=== PATIENT | male | born 1935 | race Caucasian/White ===

== ENCOUNTER → 2016-09-01 | Outpatient (CLI) | payer MEDICARE, OTHER, BC ==
[~2016-09-01] MED LIST: CO Q100C9; CYMB30CA PO; CYMB60CA PO; DIOV320T6 PO; LIVA1TAB PO; METF500T PO; MULT1TAB84 PO; MULTTAB67 PO; NEBI20 PO; OMEG1CAP53 PO; OXYC-404 PO; PENT400T PO; TAMS5CAP PO; VIAG100T PO; VITA500T PO; VITA500T83 PO; WARF-22 PO; WARF-23 PO
== END ==
LOC: PHPRE 12:45
PROVIDERS: ATTEND Pain Medicine Interventional Pain Medicine
DX: Z01.812 Encounter for preprocedural laboratory examination (principal)

== ENCOUNTER → 2016-09-04 | Outpatient (CLI) | payer MEDICARE, OTHER, BC ==
[~2016-09-04] MED LIST changes: -OXYC-404 PO
[2016-09-04 10:35] LABS: INTERNATIONAL NORMALIZED RATIO 1.8 RATIO; PROTHROMBIN TIME - PATIENT 20.6 SEC (9.8-11.6)
[2016-09-04 10:41] LABS: AUTOMATED NEUTROPHIL # 4.1 TH/MM3 (1.8-7.7); BASOPHIL % 0.1 % (0.0-2.0); EOSINOPHIL # 0.2 TH/MM3 (0-0.4); EOSINOPHIL % 2.7 % (0.0-4.0); HEMATOCRIT 40.8 % (39.0-51.0); HEMO FLAGS DIFF FINAL; LYMPH % 23.5 % (9.0-44.0); LYMPHOCYTE # 1.5 TH/MM3 (1.0-4.8); MEAN CELL VOLUME 89.1 FL (80.0-100.0); MEAN CORPUSCULAR HEMOGLOBIN 30.4 PG (27.0-34.0); MEAN CORPUSCULAR HGB CONC 34.2 % (32.0-36.0); MONO % 10.7 % (0.0-8.0); PLATELET COUNT 212 TH/MM3 (150-450); RED BLOOD COUNT 4.57 MIL/MM3 (4.50-5.90); RED CELL DISTRIBUTION WIDTH 14.1 % (11.6-17.2); WHITE BLOOD COUNT 6.5 TH/MM3 (4.0-11.0)
== END ==
LOC: PHPRE 09:41
PROVIDERS: ATTEND Pain Medicine Interventional Pain Medicine
DX: M54.5 Low back pain (principal); Z01.812 Encounter for preprocedural laboratory examination
CPT/HCPCS: 36415; 84132; 85025; 85610

== ENCOUNTER 2016-09-10 08:42 | Emergency (ER) | payer MEDICARE, OTHER, BC ==
[~2016-09-10] VITALS: Ht 180.3 cm; Wt 95.7 kg
[~2016-09-10 08:42] MED LIST changes: -MULTTAB67 PO; -VITA500T83 PO
[2016-09-10 08:56] VITALS: PULSE 79; RESP 24; TEMP 97.6; O2SAT 99
[2016-09-10] MEDS ORDERED: ONDANSETRON HCL 4 MG/2 ML VIAL ONE (09:02)
[2016-09-10] MEDS ORDERED: MORPHINE SULFATE 8 MG/ML INJ IV PUSH ONE (09:15)
[2016-09-10] MEDS ORDERED: SODIUM CHLOR 0.9% 1000 ML INJ 1,000 ML IV SCH (09:15)
[2016-09-10] MEDS ORDERED: ONDANSETRON HCL 4 MG/2 ML VIAL IV PUSH ONE (09:15)
[2016-09-10] MEDS ORDERED: MULTTAB67 PO (09:28)
[2016-09-10] MEDS ORDERED: VITA500T83 PO (09:28)
[2016-09-10 09:31] VITALS: BP 202/91; PULSE 88; RESP 20; O2SAT 99
[2016-09-10 09:33] LABS: HEMATOCRIT 42.3 % (39.0-51.0); MEAN CELL VOLUME 87.8 FL (80.0-100.0); MEAN CORPUSCULAR HEMOGLOBIN 29.8 PG (27.0-34.0); PLATELET COUNT 245 TH/MM3 (150-450); RED BLOOD COUNT 4.81 MIL/MM3 (4.50-5.90); RED CELL DISTRIBUTION WIDTH 13.7 % (11.6-17.2); WHITE BLOOD COUNT 18.3 TH/MM3 (4.0-11.0)
[2016-09-10 09:36] LABS: BLOOD, URINE LARGE (NEG); GLUCOSE,URINE NEG (NEG); KETONE, URINE NEG (NEG); NITRITE,URINE NEG (NEG); PH, URINE 5.5 (5.0-8.5)
[2016-09-10 09:40] LABS: HEMO FLAGS AUTO DIFF
[2016-09-10 09:45] LABS: BLOOD UREA NITROGEN 31 MG/DL (7-18); GLOMERULAR FILTRATION RATE 49 ML/MIN (>89)
[2016-09-10 09:46] LABS: CHLORIDE 99 MEQ/L (98-107); POTASSIUM 3.9 MEQ/L (3.5-5.1); SODIUM (NA) 138 MEQ/L (136-145)
[2016-09-10 09:51] LABS: URINE COLOR YELLOW (YELLW/STRAW)
[2016-09-10 09:52] LABS: SQUAMOUS EPITHELIAL CELL URINE 0-5 /hpf (0-5)
[2016-09-10 09:53] LABS: COMMENT (UR) CULT NOT INDICATED; CULTURE IF INDICATED CULT NOT INDICATED
[2016-09-10 10:03] LABS: ANION GAP 13 MEQ/L (5-15); BICARBONATE 26.3 MEQ/L (21.0-32.0); MAGNESIUM 2.1 MG/DL (1.5-2.5)
[2016-09-10 10:04] LABS: ALT (GPT) 18 U/L (12-78); AST (GOT) 18 U/L (15-37)
[2016-09-10 10:06] LABS: BANDS 1 % (0-6); NEUTROPHIL # MANUAL DIFF 16.1 TH/MM3 (1.8-7.7); POLYS (SEG NEUTROPHILS) 87 % (16-70); TOTAL BILIRUBIN ADULT 1.4 MG/DL (0.2-1.0); WBC DIFF SAMPLE 100
[2016-09-10 10:07] LABS: PLATELET ESTIMATE SMEAR NORMAL (NORMAL); PLATELET MORPHOLOGY NORMAL (NORMAL); SCAN/DIFF FINAL DIFF MANUAL
[2016-09-10 10:08] VITALS: BP 172/91; PULSE 78; RESP 18; O2SAT 94
[2016-09-10 10:08] LABS: ALKALINE PHOSPHATASE 91 U/L (45-117)
[2016-09-10 10:28] LABS: APTT (PATIENT) 32.7 SEC (24.3-30.1)
--- NOTE | 2016-09-10 10:28 | PD ---
HPI Chief Complaint: GI Complaint Time Seen by Provider: 09:03 Travel History International Travel<30 days: No Contact w/Intl Traveler<30days: No Traveled to known affect area: No History of Present Illness HPI This 80-year-old male presented with complaint of pain everywhere. He has a history 3 back surgeries. On Thursday he had a pain pump inserted here under Dr. Enrique. His says that since he had the surgery he has been having trouble urinating and just urinating small amounts he has had an indwelling catheter in the past and has a history of prostate problems. This morning he was vomiting and complaining of pain everywhere. PFSH Past Medical History Arthritis: Yes Atrial Fibrillation: Yes Anxiety: No Depression: No Heart Rhythm Problems: Yes (A FIB) Cancer: Yes (SKIN CANCER) Cardiovascular Problems: Yes (ATRIAL FIB.; LOOP PUMP) High Cholesterol: Yes Chest Pain: No Congestive Heart Failure: No Cerebrovascular Accident: No Diabetes: Yes Patient Takes Glucophage: Yes Diminished Hearing: No Endocrine: No Genitourinary: Yes (FREQUENCY) Hepatitis: No Hiatal Hernia: No Hypertension: Yes Immune Disorder: No Kidney Stones: Yes Musculoskeletal: Yes (ARTHRITIS) Neurologic: Yes (NEUROPATHY) Psychiatric: Yes (CLAUSTRAPHOBIA (WITH MRI)) Reproductive: No Respiratory: No Migraines: No Seizures: No Thyroid Disease: No Tetanus Vaccination: > 5 Years Influenza Vaccination: Yes Past Surgical History Abdominal Surgery: No AICD: No Body Medical Devices: LOOP MONITOR Cardiac Surgery: No Ear Surgery: No Endocrine Surgery: No Eye Surgery: Yes (BILAT CATARACT SURGERY) Genitourinary Surgery: Yes (LITHROTRIPSY) Joint Replacement: No Oral Surgery: No Pacemaker: No Thoracic Surgery: No Other Surgery: Yes (MS PAIN PUMP) Social History Alcohol Use: No Tobacco Use: No Substance Use: No Allergies-Medications (Allergen,Severity, Reaction): Coded Allergies: Neurontin (Unverified Adverse Reaction, Severe, CONFUSION, HALLUCINATIONS , 09/10/16) Reported Meds & Prescriptions Reported Meds & Active Scripts Active Reported Vitamin C ER (Ascorbic Acid) 500 Mg Shabbir 500 Mg PO DAILY Multiple Vitamin 1 Tab 1 Tab PO DAILY Metformin (Metformin HCl) 500 Mg Tab 500 Mg PO BIDPC With meals Pentoxifylline ER (Pentoxifylline) 400 Mg Tab 400 Mg PO TID Livalo (Pitavastatin) 1 Mg Tab 1 Mg PO DAILY Diovan Hct (Valsartan-Hydrochlorothiazide) 320-25 Mg Tab 1 Tab PO DAILY Warfarin 10 Mg Tab 10 Mg PO ,THU,THU,THU Warfarin 5 Mg Tab 5 Mg PO SUN, MON,THURS Lovaza (Kfhyo-9-Xelo Ethyl Esters) 1 Gm Cap 1,200 Mg PO DAILY Bystolic (Nebivolol) 20 Mg Tab 20 Mg PO BID Cymbalta DR (Duloxetine HCl) 30 Mg Capdr 30 Mg PO DAILY Cymbalta DR (Duloxetine HCl) 60 Mg Capdr 60 Mg PO HS Co Q 10 (Coenzyme Q10 (Ubidecarenone)) 100 Mg Cap Viagra (Sildenafil Citrate) 100 Mg Tab 100 Mg PO DAILY PRN Flomax (Tamsulosin HCl) 0.4 Mg Cap 0.4 Mg PO HS Review of Systems General / Constitutional: No: Fever, Chills Eyes: No: Diploplia, Blurred Vision HENT: No: Headaches, Vertigo Cardiovascular: No: Chest Pain or Discomfort, Palpitations Respiratory: No: Cough Gastrointestinal: Positive: Nausea, Vomiting, Abdominal Pain Genitourinary: Positive: Decreased Urinary Output Skin: No Rash, No Itching Neurologic: No: Weakness, Dizziness Hematologic/Lymphatic: No: Easy Bruising Physical Exam Narrative GENERAL: Well-developed male. He arrives in marked distress and is extremely restless SKIN: Focused skin assessment warm/dry. HEAD: Atraumatic. Normocephalic. EYES: Pupils equal and round. No scleral icterus. No injection or drainage. ENT: No nasal bleeding or discharge. Mucous membranes pink and moist. NECK: Trachea midline. No JVD. CARDIOVASCULAR: Regular rate and rhythm. No murmur appreciated. RESPIRATORY: No accessory muscle use. Clear to auscultation. Breath sounds equal bilaterally. GASTROINTESTINAL: Abdomen soft, initially it is diffusely tender, nondistended. Hepatic and splenic margins not palpable. There is a bandage on the left midabdomen. On removing the bandage there is a surgical incision with no evidence of infection MUSCULOSKELETAL: No obvious deformities. No clubbing. No cyanosis. No edema. NEUROLOGICAL: Awake and alert. No obvious cranial nerve deficits. Motor grossly within normal limits. Normal speech. PSYCHIATRIC: Appropriate mood and affect; insight and judgment normal. Data Data Last Documented VS Vital Signs Date Time Temp Pulse Resp B/P Pulse Ox O2 Delivery O2 Flow Rate FiO2 09/10/16 10:08 78 18 172/91 94 Room Air 09/10/16 08:56 97.6 Orders Ondansetron Inj (Zofran Inj) (09/10/16 09:02) Complete Blood Count With Diff (09/10/16 09:03) Comprehensive Metabolic Panel (09/10/16 09:03) Prothrombin Time / Inr (Pt) (09/10/16 09:03) Act Partial Throm Time (Ptt) (09/10/16 09:03) Magnesium (Mg) (09/10/16 09:03) Urinary Catheter Insert/Apply (09/10/16 09:03) Sodium Chlor 0.9% 1000 Ml Inj (Ns 1000 M (09/10/16 09:15) Ondansetron Inj (Zofran Inj) (09/10/16 09:15) Morphine Inj (Morphine Inj) (09/10/16 09:15) Urinalysis - C+S If Indicated (09/10/16 09:23) Ct Abd/Pel W Iv Contrast(Rout) (09/10/16 10:06) Iohexol 350 Inj (Omnipaque 350 Inj) (09/10/16 10:54) Labs Laboratory Tests Test 09/10/16 09:15 White Blood Count 18.3 TH/MM3 Red Blood Count 4.81 MIL/MM3 Hemoglobin 14.4 GM/DL Hematocrit 42.3 % Mean Corpuscular Volume 87.8 FL Mean Corpuscular Hemoglobin 29.8 PG Mean Corpuscular Hemoglobin 34.0 % Concent Red Cell Distribution Width 13.7 % Platelet Count 245 TH/MM3 Mean Platelet Volume 8.9 FL Neutrophils (%) (Auto) % Lymphocytes (%) (Auto) % Monocytes (%) (Auto) % Eosinophils (%) (Auto) % Basophils (%) (Auto) % Neutrophils # (Auto) TH/MM3 Lymphocytes # (Auto) TH/MM3 Monocytes # (Auto) TH/MM3 Eosinophils # (Auto) TH/MM3 Basophils # (Auto) TH/MM3 CBC Comment AUTO DIFF Differential Total Cells 100 Counted Neutrophils % (Manual) 87 % Band Neutrophils % 1 % Lymphocytes % 6 % Monocytes % 6 % Neutrophils # (Manual) 16.1 TH/MM3 Differential Comment FINAL DIFF MANUAL Platelet Estimate NORMAL Platelet Morphology Comment NORMAL Red Cell Morphology Comment NORMAL Prothrombin Time 11.0 SEC Prothromb Time International 1.0 RATIO Ratio Activated Partial 32.7 SEC Thromboplast Time Urine Color YELLOW Urine Turbidity CLEAR Urine pH 5.5 Urine Specific [place] 1.012 Urine Protein NEG mg/dL Urine Glucose (UA) NEG mg/dL Urine Ketones NEG mg/dL Urine Occult Blood LARGE Urine Nitrite NEG Urine Bilirubin NEG Urine Leukocyte Esterase NEG Urine RBC 4-9 /hpf Urine Squamous Epithelial 0-5 /hpf Cells Microscopic Urinalysis Comment CULT NOT INDICATED Sodium Level 138 MEQ/L Potassium Level 3.9 MEQ/L Chloride Level 99 MEQ/L Carbon Dioxide Level 26.3 MEQ/L Anion Gap 13 MEQ/L Blood Urea Nitrogen 31 MG/DL Creatinine 1.40 MG/DL Estimat Glomerular Filtration 49 ML/MIN Rate Random Glucose 199 MG/DL Calcium Level 9.7 MG/DL Magnesium Level 2.1 MG/DL Total Bilirubin 1.4 MG/DL Aspartate Amino Transf 18 U/L (AST/SGOT) Alanine Aminotransferase 18 U/L (ALT/SGPT) Alkaline Phosphatase 91 U/L Total Protein 7.8 GM/DL Albumin 3.7 GM/DL [facility] Medical Decision Making Medical Screen Exam Complete: Yes Emergency Medical Condition: Yes Medical Record Reviewed: Yes Differential Diagnosis Differential includes urinary retention, UTI, Narrative Course Sosa catheter was inserted with over a liter of urine obtained. The patient's agitation has resolved considerably. He reports much less pain. The CT of the abdomen and pelvis was obtained and shows postoperative changes. CBC does show an enlarged prostate and there is a single enlarged node for which follow-up is recommended in 6 months. It appears the patient's pain was due to his urinary retention. A catheter was inserted he was quite stable. Dr. Enrique has come to see the patient in the emergency department and will follow-up with the patient tomorrow. There was some discussion about whether to leave the catheter in overnight and remove it and the patient wishes to have it removed now. Patient's morphine pump has been turned off by Dr. Enrique's staff Diagnosis Primary Impression: Urinary retention Disposition: 01 DISCHARGE HOME Condition: Stable Diogenes Rivas MD Sep 10, 2016 10:28
[2016-09-10] MEDS ORDERED: IOHEXOL 350 MG/ML 10 ML VIAL (for RAD DIAG) IV ONE (10:54)
--- NOTE | 2016-09-10 11:02 | RADRPT ---
EXAM DATE/TIME: 09/10/2016 10:19 [place] COMPARISON: No previous studies available for comparison. INDICATIONS : Abdominal pain where recent pain pump placed. Vomiting. IV CONTRAST: 75 cc Omnipaque 350 (iohexol) IV ORAL CONTRAST: No oral contrast ingested. RADIATION DOSE: 18.48 CTDIvol (mGy) MEDICAL HISTORY : Diabetes mellitus type 2. Cardiovascular disease Renal calculi.Hypertension. SURGICAL HISTORY : Fusion, lumbar. Lithotripsy. ENCOUNTER: Initial ACUITY: 3 days PAIN SCALE: 7/10 LOCATION: Abdomen TECHNIQUE: Volumetric scanning of the abdomen and pelvis was performed. Using automated exposure control and ad justment of the mA and/or kV according to patient size, radiation dose was kept as low as reasonably achievable to obtain optimal diagnostic quality images. FINDINGS: The heart is enlarged. There are COPD changes in the lung bases. There are bilateral pleural calcific ations. The appearance of the liver, spleen, pancreas and adrenal glands is within normal limits. There are p unctate nonobstructing stones seen in the collecting system of both kidneys. The kidneys are otherwis e unremarkable in appearance. The examination does demonstrate a 1.3 cm node in the celiac axis katy chain. This is nonspecific in appearance. The abdominal aorta is normal in caliber. The visualized loops of small and large bowel in the upper abdomen are unremarkable. The anterior abd ominal wall is intact. Note is made of a small amount of gas around the patient's implanted device in the anterior abdominal wall. The patient has a history of having recently had the pain pump placed a s such, this would not be unexpected. There is no free fluid within the pelvis. No iliac or inguinal adenopathy is seen. There is a Sosa c atheter within the bladder. The prostate is enlarged. The visualized bony structures demonstrate postsurgical changes within the spine but are otherwise in tact. CONCLUSION: 1. There is some gas evident surrounding the pain pump in the left anterior abdominal wall apparently this was recently placed and as such this would not be unexpected. No significant fluid is identifie d.2. 2 punctate nonobstructing stones in the collecting system of the left kidney. There is a single nonobstructing stone seen on the right. 3. Postsurgical and degenerative changes within the lumbar spine. 4. Enlargement of the prostate. There is a Sosa catheter within the bladder. 5. COPD changes with pleural calcification bilaterally. 6. There is a 1.3 cm enlarged node in the celiac axis katy chain. This is nonspecific in appearance. Followup in 6 months to ensure this is stable would be warranted. Raymond Wick MD on September 10, 2016 at 10:48 Board Certified Radiologist. This report was verified electronically.
[2016-09-10 11:21] VITALS: BP 155/78; PULSE 75; RESP 16; O2SAT 94
== END 2016-09-10 11:41 | disposition home or self-care (01) ==
LOC: PHED 08:42
DX: R33.9 Retention of urine, unspecified (principal); I48.91 Unspecified atrial fibrillation; E78.00 Pure hypercholesterolemia, unspecified; I10 Essential (primary) hypertension; N40.0 Benign prostatic hyperplasia without lower urinary tract symptoms
CPT/HCPCS: 51702; 74177; 80053; 81001; 83735; 85007; 85027; 85610; 85730; 96361; 96374; 99285; J2405; J7030; Q9967

== ENCOUNTER 2016-09-10 18:22 | Emergency (ER) | payer MEDICARE, OTHER, BC ==
[~2016-09-10] VITALS: Ht 180.3 cm; Wt 95.7 kg
[~2016-09-10 18:22] MED LIST changes: +MULTTAB67 PO; +VITA500T83 PO
[2016-09-10 18:29] VITALS: BP 172/92; PULSE 74; RESP 16; TEMP 97.7; O2SAT 97
--- NOTE | 2016-09-10 19:04 | PD ---
HPI Chief Complaint: Complaint Time Seen by Provider: 18:50 Travel History International Travel<30 days: No Contact w/Intl Traveler<30days: No Traveled to known affect area: No History of Present Illness HPI 80-year-old male here for evaluation of urinary retention. The patient was seen in the emergency department earlier today complaining of diffuse pain. He was found to be having urinary retention and a Sosa catheter was placed. Patient decided that he did not want to go home with a catheter, so was removed. Since he was discharged from the emergency department he has not been able to urinate. He again is having lower abdominal pressure and discomfort. 2 days ago the patient had a pain pump placed for chronic back pains after 3 different surgeries. He had a CT abdomen pelvis performed earlier today which shows an enlarged prostate. Sosa catheter was placed by my nurse prior to me evaluating the patient and there was over 800 cc of clear urine output. Patient experienced significant improvement in symptoms after the Sosa catheter was placed. PFSH Past Medical History Arthritis: Yes Atrial Fibrillation: Yes Anxiety: No Depression: No Heart Rhythm Problems: Yes (A FIB) Cancer: Yes (SKIN CANCER) Cardiovascular Problems: Yes (ATRIAL FIB.; LOOP PUMP) High Cholesterol: Yes Chest Pain: No Congestive Heart Failure: No Cerebrovascular Accident: No Diabetes: Yes Patient Takes Glucophage: Yes Diminished Hearing: No Endocrine: No Genitourinary: Yes (FREQUENCY) Hepatitis: No Hiatal Hernia: No Hypertension: Yes Immune Disorder: No Kidney Stones: Yes Musculoskeletal: Yes (ARTHRITIS) Neurologic: Yes (NEUROPATHY) Psychiatric: Yes (CLAUSTRAPHOBIA (WITH MRI)) Reproductive: No Respiratory: No Migraines: No Seizures: No Thyroid Disease: No Tetanus Vaccination: > 5 Years Influenza Vaccination: Yes Past Surgical History Abdominal Surgery: No AICD: No Body Medical Devices: LOOP MONITOR Cardiac Surgery: No Ear Surgery: No Endocrine Surgery: No Eye Surgery: Yes (BILAT CATARACT SURGERY) Genitourinary Surgery: Yes (LITHROTRIPSY) Joint Replacement: No Oral Surgery: No Pacemaker: No Thoracic Surgery: No Other Surgery: Yes (MS PAIN PUMP) Social History Alcohol Use: No Tobacco Use: No Substance Use: No Allergies-Medications (Allergen,Severity, Reaction): Coded Allergies: Neurontin (Unverified Adverse Reaction, Severe, CONFUSION, HALLUCINATIONS , 09/10/16) Reported Meds & Prescriptions Reported Meds & Active Scripts Active Reported Vitamin C ER (Ascorbic Acid) 500 Mg Shabbir 500 Mg PO DAILY Multiple Vitamin 1 Tab 1 Tab PO DAILY Metformin (Metformin HCl) 500 Mg Tab 500 Mg PO BIDPC With meals Pentoxifylline ER (Pentoxifylline) 400 Mg Tab 400 Mg PO TID Livalo (Pitavastatin) 1 Mg Tab 1 Mg PO DAILY Diovan Hct (Valsartan-Hydrochlorothiazide) 320-25 Mg Tab 1 Tab PO DAILY Warfarin 10 Mg Tab 10 Mg PO TU,WED,THU,SAT Warfarin 5 Mg Tab 5 Mg PO SUN, MON,THURS Lovaza (Iasoc-2-Pbzz Ethyl Esters) 1 Gm Cap 1,200 Mg PO DAILY Bystolic (Nebivolol) 20 Mg Tab 20 Mg PO BID Cymbalta DR (Duloxetine HCl) 30 Mg Capdr 30 Mg PO DAILY Cymbalta DR (Duloxetine HCl) 60 Mg Capdr 60 Mg PO HS Co Q 10 (Coenzyme Q10 (Ubidecarenone)) 100 Mg Cap Viagra (Sildenafil Citrate) 100 Mg Tab 100 Mg PO DAILY PRN Flomax (Tamsulosin HCl) 0.4 Mg Cap 0.4 Mg PO HS Review of Systems Except as stated in HPI: all other systems reviewed are Neg Physical Exam Narrative GENERAL: Well-developed, well-nourished, resting comfortably, no acute distress. SKIN: Focused skin assessment warm/dry. GASTROINTESTINAL: Abdomen soft, non-tender, nondistended. NEUROLOGICAL: Awake and alert. No obvious cranial nerve deficits. Motor grossly within normal limits. Normal speech. PSYCHIATRIC: Appropriate mood and affect; insight and judgment normal. Data Data Last Documented VS Vital Signs Date Time Temp Pulse Resp B/P Pulse Ox O2 Delivery O2 Flow Rate FiO2 09/10/16 18:29 97.7 74 16 172/92 97 Orders Urinary Catheter Insert/Apply (09/10/16 18:59) Bag, Leg 32oz Sterile Large Ea (09/10/16 18:59) MDM Medical Decision Making Medical Screen Exam Complete: Yes Emergency Medical Condition: Yes Differential Diagnosis Urinary retention, BPH, Narrative Course Sosa catheter was placed by my nurse prior to me evaluating the patient. There is over 800 cc of clear urine output, and the patient experienced significant improvement in lower abdominal discomfort. Patient already has a prescription for Flomax. He has an appointment with his pain management physician tomorrow. He has a urologist in [place] whom he will follow-up with this week. He is stable for discharge home with a Sosa catheter this time with a leg bag. He was informed on when to return to the emergency department. Both patient and the patient's significant other verbalize understanding and agreement with plan. Diagnosis Primary Impression: Urinary retention Referrals: Primary Care Physician 3 days Urologist 3 days Additional Instructions: Follow-up with your pain management physician tomorrow as scheduled. Follow-up with your urologist this week. Return to the emergency department for worsening symptoms or any other concerns. Disposition: 01 DISCHARGE HOME Condition: Stable Adal Webb MD Sep 10, 2016 19:04
[2016-09-10 20:00] VITALS: BP 170/88
== END 2016-09-10 20:07 | disposition home or self-care (01) ==
LOC: PHED 18:22
DX: R33.9 Retention of urine, unspecified (principal); N40.0 Benign prostatic hyperplasia without lower urinary tract symptoms; I48.91 Unspecified atrial fibrillation; E78.00 Pure hypercholesterolemia, unspecified; E11.9 Type 2 diabetes mellitus without complications; I10 Essential (primary) hypertension; Z98.890 Other specified postprocedural states
CPT/HCPCS: 51702

== ENCOUNTER → 2016-11-03 | Day surgery (SDC) | payer MEDICARE, BC, OTHER ==
[~2016-11-03] MED LIST changes: -MULT1TAB84 PO; -VITA500T PO
== END | disposition home or self-care (01) ==
LOC: PHSDC 09:04
PROVIDERS: ATTEND Pain Medicine Interventional Pain Medicine
DX: M53.3 Sacrococcygeal disorders, not elsewhere classified (principal)

== ENCOUNTER 2017-09-03 05:27 | Emergency (ER) | payer MEDICARE, BC, OTHER ==
[2017-09-03] VITALS (7 sets, daily range): BP systolic 186–238; BP diastolic 61–105; PULSE 67–78; RESP 16–20; TEMP 98.3; O2SAT 89–99
[~2017-09-03] VITALS: Ht 180.3 cm; Wt 91.0 kg
[~2017-09-03 05:27] MED LIST changes: -CO Q100C9; +CO Q100C9 PO
[2017-09-03] MEDS ORDERED: MORPHINE SULFATE 8 MG/ML INJ IV PUSH ONE (06:00)
[2017-09-03] MEDS ORDERED: ONDANSETRON HCL 4 MG/2 ML VIAL IV ONE (06:00)
--- NOTE | 2017-09-03 06:02 | PD ---
HPI Chief Complaint: Back/ Neck Pain or Injury Time Seen by Provider: 05:44 Travel History International Travel<30 days: No Contact w/Intl Traveler<30days: No Traveled to known affect area: No History of Present Illness HPI The patient is a 81-year-old male that woke up with right lumbosacral pain, nonradiating, since about 1 in the morning. The pain does not radiate down his leg and he denies any numbness or weakness down his leg. The pain is a 10/10 and sharp pain. It is reproducible by any movements or touching the lumbosacral area on the right. The patient has had multiple surgeries on his back. Dr. Enrique manages his morphine pump. His neurosurgeon is at [facility] in [place]. [facility] Past Medical History Arthritis: Yes Atrial Fibrillation: Yes Anxiety: No Depression: No Heart Rhythm Problems: Yes (A FIB) Cancer: Yes (SKIN CANCER) Cardiovascular Problems: Yes (ATRIAL FIB.; LOOP PUMP) High Cholesterol: Yes Chest Pain: No Congestive Heart Failure: No Cerebrovascular Accident: No Diabetes: Yes Patient Takes Glucophage: Yes Diminished Hearing: No Endocrine: No Gastrointestinal Disorders: No Genitourinary: Yes (FREQUENCY) Headaches: No Hepatitis: No Hiatal Hernia: No Hypertension: Yes Immune Disorder: No Implanted Vascular Access Dvce: No Kidney Stones: Yes Medical other: No Musculoskeletal: Yes (ARTHRITIS) Neurologic: Yes (NEUROPATHY) Psychiatric: Yes (CLAUSTRAPHOBIA (WITH MRI)) Reproductive: No Respiratory: No Migraines: No Seizures: No Thyroid Disease: No Tetanus Vaccination: < 5 Years Influenza Vaccination: Yes Past Surgical History Abdominal Surgery: No AICD: No Body Medical Devices: LOOP MONITOR Cardiac Surgery: No Ear Surgery: No Endocrine Surgery: No Eye Surgery: Yes (BILAT CATARACT SURGERY) Genitourinary Surgery: Yes (LITHROTRIPSY) Joint Replacement: No Neurologic Surgery: No Oral Surgery: No Pacemaker: No Thoracic Surgery: No Other Surgery: Yes (MS PAIN PUMP) Social History Alcohol Use: No Tobacco Use: No Substance Use: No Allergies-Medications (Allergen,Severity, Reaction): Coded Allergies: gabapentin (Unverified Adverse Reaction, Severe, CONFUSION, HALLUCINATIONS , 11/04/16) Reported Meds & Prescriptions Reported Meds & Active Scripts Active Reported Vitamin C ER (Ascorbic Acid) 500 Mg Shabbir 500 Mg PO DAILY Multiple Vitamin 1 Tab 1 Tab PO DAILY Metformin (Metformin HCl) 500 Mg Tab 500 Mg PO BIDPC With meals Pentoxifylline ER (Pentoxifylline) 400 Mg Tab 400 Mg PO TID Livalo (Pitavastatin) 1 Mg Tab 1 Mg PO DAILY Diovan Hct (Valsartan-Hydrochlorothiazide) 320-25 Mg Tab 1 Tab PO DAILY Warfarin 10 Mg Tab 10 Mg PO TU,THU,THU,SAT Warfarin 5 Mg Tab 5 Mg PO SUN, MON,THURS Lovaza (Rajek-6-Kyrk Ethyl Esters) 1 Gm Cap 1,200 Mg PO DAILY Bystolic (Nebivolol) 20 Mg Tab 20 Mg PO BID Cymbalta DR (Duloxetine HCl) 30 Mg Capdr 30 Mg PO DAILY Cymbalta DR (Duloxetine HCl) 60 Mg Capdr 60 Mg PO HS Co Q 10 (Coenzyme Q10 (Ubidecarenone)) 100 Mg Cap Viagra (Sildenafil Citrate) 100 Mg Tab 100 Mg PO DAILY PRN Flomax (Tamsulosin HCl) 0.4 Mg Cap 0.4 Mg PO HS Review of Systems Except as stated in HPI: all other systems reviewed are Neg Physical Exam Narrative GENERAL: The patient is alert, oriented 3 in severe distress with his back pain. His vital signs show blood pressure 238/99 but are otherwise normal. SKIN: Focused skin assessment warm/dry. HEAD: Atraumatic. Normocephalic. EYES: Pupils equal and round. No scleral icterus. No injection or drainage. ENT: No nasal bleeding or discharge. Mucous membranes pink and moist. NECK: Trachea midline. No JVD. CARDIOVASCULAR: Regular rate and rhythm. No murmur appreciated. RESPIRATORY: No accessory muscle use. Clear to auscultation. Breath sounds equal bilaterally. GASTROINTESTINAL: Abdomen soft, non-tender, nondistended. Hepatic and splenic margins not palpable. MUSCULOSKELETAL: No obvious deformities. No clubbing. No cyanosis. No edema. Light touch reproduces the patient's pain about 10 cm to the right of midline in the lumbosacral area. The patient is to painful to check reflexes and straight leg raising is impossible with this patient. NEUROLOGICAL: Awake and alert. No obvious cranial nerve deficits. Motor grossly within normal limits. Normal speech. PSYCHIATRIC: Appropriate mood and affect; insight and judgment normal. Data Data Last Documented VS Vital Signs Date Time Temp Pulse Resp B/P (MAP) Pulse Ox O2 Delivery O2 Flow Rate FiO2 09/03/17 06:34 18 98 Room Air 09/03/17 05:33 98.3 67 Orders Orders Iv Access Insert/Monitor (09/03/17 05:55) Ecg Monitoring (09/03/17 05:55) Oximetry (09/03/17 05:55) Morphine Inj (Morphine Inj) (09/03/17 06:00) Ondansetron Inj (Zofran Inj) (09/03/17 06:00) MDM Medical Decision Making Medical Screen Exam Complete: Yes Emergency Medical Condition: Yes Medical Record Reviewed: Yes Differential Diagnosis Acute lumbosacral strain, herniated disc, fracture-extremely unlikely Narrative Course The patient appears to have an acute lumbosacral strain. There was no trauma and fracture is extremely unlikely. Also, herniated disc is unlikely, there is no radiation of this pain. The patient appears to be calming down now and wants to try it at home. He will be given Percocet 10.It is now 0644 and the patient has begun to feel better. He states was starting to feel better before the IV morphine. He wants to try it at home with pain medications. I will write him Percocet 10 and he will follow-up with Dr. Roy. Diagnosis Primary Impression: Acute lumbosacral myofascial strain Additional Instructions: Acute lumbosacral strain Med/Other Pt SpecificInfo: Prescription(s) given Scripts Oxycodone-Acetaminophen (Percocet) 10-325 mg Tab 1 TAB PO Q4H Y for PAIN, #20 TAB 0 Refills Prov: Josiah Milan MD 09/03/17 Disposition: 01 DISCHARGE HOME Condition: Stable Josiah Milan MD Sep 03, 2017 06:02
[2017-09-03] MEDS ORDERED: PERC10TA27 PO (06:54)
[2017-09-03] MEDS ORDERED: VALSARTAN 160 MG TAB PO ONE (07:30)
[2017-09-03] MEDS ORDERED: HYDROmorphone HCL PF 1 MG/ML VIAL IV PUSH ONE (07:30)
[2017-09-03] MEDS ORDERED: NEBIVOLOL 10 MG TAB PO ONE (07:30)
[2017-09-03] MEDS ORDERED: FUROSEMIDE 20 MG TAB PO ONE (07:30)
[2017-09-03 07:33] LABS: AUTOMATED NEUTROPHIL # 4.3 TH/MM3 (1.8-7.7); BASOPHIL % 0.3 % (0.0-2.0); EOSINOPHIL # 0.2 TH/MM3 (0-0.4); EOSINOPHIL % 3.1 % (0.0-4.0); HEMATOCRIT 34.8 % (39.0-51.0); HEMOGLOBIN 11.8 GM/DL (13.0-17.0); LYMPH % 15.3 % (9.0-44.0); LYMPHOCYTE # 0.9 TH/MM3 (1.0-4.8); MEAN CELL VOLUME 84.6 FL (80.0-100.0); MEAN CORPUSCULAR HEMOGLOBIN 28.7 PG (27.0-34.0); MEAN CORPUSCULAR HGB CONC 33.9 % (32.0-36.0); MEAN PLATELET VOLUME 8.4 FL (7.0-11.0); MONO % 10.2 % (0.0-8.0); MONOCYTE # 0.6 TH/MM3 (0-0.9); NEUT % 71.1 % (16.0-70.0); PLATELET COUNT 197 TH/MM3 (150-450); RED BLOOD COUNT 4.11 MIL/MM3 (4.50-5.90); RED CELL DISTRIBUTION WIDTH 15.2 % (11.6-17.2)
[2017-09-03 07:38] LABS: BILIRUBIN, URINE NEG (NEG); BLOOD, URINE NEG (NEG); GLUCOSE,URINE NEG (NEG); KETONE, URINE NEG (NEG); NITRITE,URINE NEG (NEG); PH, URINE 7.5 (5.0-8.5); URINE COLOR YELLOW (YELLW/STRAW); URINE LEUKOCYTE ESTERASE NEG (NEG)
[2017-09-03 07:43] LABS: CHLORIDE 101 MEQ/L (98-107); SODIUM (NA) 138 MEQ/L (136-145)
[2017-09-03 07:44] LABS: CALCIUM 9.1 MG/DL (8.5-10.1)
[2017-09-03 07:45] LABS: ALBUMIN 3.4 GM/DL (3.4-5.0); BLOOD UREA NITROGEN 21 MG/DL (7-18); GLUCOSE,RANDOM 134 MG/DL (74-106)
[2017-09-03] MEDS ORDERED: VALSARTAN 80 MG TAB PO ONE (07:45)
[2017-09-03] MEDS ORDERED: HYDROmorphone HCL PF 2 MG/ML VIAL IV PUSH ONE (07:45)
[2017-09-03 07:46] LABS: RBC, URINE 0-3 /hpf (0-3); SQUAMOUS EPITHELIAL CELL URINE 0-5 /hpf (0-5)
[2017-09-03 07:48] LABS: ALT (GPT) 21 U/L (12-78); AST (GOT) 22 U/L (15-37); CREATININE 0.66 MG/DL (0.60-1.30); GLOMERULAR FILTRATION RATE 116 ML/MIN (>89)
[2017-09-03 07:49] LABS: TOTAL BILIRUBIN ADULT 0.8 MG/DL (0.2-1.0); TOTAL PROTEIN 7.6 GM/DL (6.4-8.2)
[2017-09-03 07:51] LABS: ALKALINE PHOSPHATASE 106 U/L (45-117)
[2017-09-03 07:56] LABS: INTERNATIONAL NORMALIZED RATIO 2.2 RATIO; PROTHROMBIN TIME - PATIENT 22.4 SEC (9.8-11.6)
[2017-09-03] MEDS ORDERED: IOHEXOL 350 MG/ML 10 ML VIAL (for RAD DIAG) IVCONTRAST ONE (08:26)
--- NOTE | 2017-09-03 09:35 | RADRPT ---
EXAM DATE: 09/03/2017 8:22 AM EDT AGE/SEX: 81 years / Male INDICATIONS: Right low back pain. Evaluate for retroperitoneal hemorrhage. CLINICAL DATA: This is the patient's initial encounter. Patient reports that signs and symptoms have been present for 1 day and indicates a pain score of 10/10. MEDICAL/SURGICAL HISTORY: Renal calculi. Cardiovascular disease. Diabetes. Hypertension. Li thotripsy. Multiple lumbar surgeries. ORAL CONTRAST: No oral contrast ingested. RADIATION DOSE: 20.54 CTDI (mGy) COMPARISON: [facility], CT ABDOMEN & PELVIS W CONTRAST, 09/10/2016. . TECHNIQUE: Multiple contiguous axial images were obtained through the abdomen and pelvis following b olus infusion of 90 ml Omnipaque 350 (iohexol) nonionic water-soluble contrast as a single exam dos e. No oral contrast ingested. Using automated exposure control and adjustment of the mA and/or kV ac cording to patient size, the radiation dose was kept as low as reasonably achievable to obtain optima l diagnostic quality images. FINDINGS: Lower Lungs: Small bilateral effusions with mild airspace disease is noted in both lung bases. Heart is moderately enlarged. Liver: Stable without focal suspicious lesions or biliary duct dilatation. Spleen: Homogeneous density without enlargement. Pancreas: Unremarkable without mass or calcification. Kidneys: Small nonobstructing calculi remain evident in both kidneys. There is no evidence of hydron ephrosis or renal masses. Adrenal Glands: Unremarkable. Aorta: Advanced calcific atherosclerotic vascular disease is noted. Only calcified plaque is identi fied throughout the aorta extending into the aortic branches. No definite plaque is identified in the proximal SMA and right renal artery which may indicate the presence of significant stenosis. Bowel/Mesentery: The bowel loops are grossly unremarkable. The cecum and sigmoid colon have a normal configuration. Abdominal Wall: Pain pump is identified in the left anterior abdominal wall. Retroperitoneum: No evidence of adenopathy in the retrocrural, para-aortic, or deep pelvic regions. There is no evidence of retroperitoneal hemorrhage. Bladder: Contours are smooth. Reproductive Organs: The prostate gland is enlarged. There is evidence of BPH projecting into the ba se of the bladder. Inguinal: The inguinal region is unremarkable without evidence of adenopathy. Bony Structures: Extensive postsurgical changes are seen in the lumbar spine following laminectomy a nd fusion. A fusion apparatus consisting of bilateral posterior rods with transpedicular fixation scr ews is identified extending from L2 through S1. CONCLUSION: 1. No evidence of retroperitoneal hemorrhage. 2. Small bilateral pleural effusions and lower lobe airspace disease. 3. Nonobstructing renal calculi. 4. Severe calcific atherosclerotic vascular disease with possible hemodynamically significant stenos is involving the SMA and right renal artery. 5. Extensive postsurgical changes of the lumbar spine following fusion as described. 6. Pain pump in place. 7. Prostatomegaly with BPH. Electronically signed by: Diallo Dozier MD 09/03/2017 9:33 AM EDT
--- NOTE | 2017-09-03 09:57 | RADRPT ---
EXAM DATE: 09/03/2017 8:33 AM EDT AGE/SEX: 81 years / Male INDICATIONS: Right low back pain. CLINICAL DATA: This is the patient's initial encounter. Patient reports that signs and symptoms have been present for 1 day and indicates a pain score of 10/10. MEDICAL/SURGICAL HISTORY: Cardiovascular disease. Renal calculi. Diabetes. Hypertension. Lithot ripsy. Multiple lumbar surgeries. RADIATION DOSE: . CTDI (mGy) ; Reconstructed from previous dataset, no dose [place] [facility] [place] [place] & [place] 08/02/2013. O, CT ABDOMEN & PELVIS W CONTRAST, . . TECHNIQUE: Contiguous axial images were acquired with a multirow detector CT scanner without contras t. Multiplanar reconstructions in the sagittal and coronal plane were also performed. Using automate d exposure control and adjustment of the mA and/or kV according to patient size, radiation dose was k ept as low as reasonably achievable to obtain optimal diagnostic quality images. FINDINGS: Extensive lumbar fusion is noted from L2 through S1 with hardware adequate in position. Mo derate compression deformity involving L4 is noted. There is grade I anterolisthesis of L4 in relatio n to L3 and L5 in relation to L4. Degenerative disc disease is noted at all levels within the lumbar spine. No acute fracture is noted. Moderate bilateral foraminal narrowing is noted at L3-4, L4-5 and L5-S1 s econdary to extensive facet joint hypertrophy and disc osteophyte complexes at these levels. No signi ficant spinal stenosis is noted. Right sacroiliac joint fusion hardware is also noted. Calcified nono bstructing renal calculi are noted bilaterally. Small bilateral pleural effusions are noted. CONCLUSION: 1. No acute compression fracture. 2. Moderate chronic compression deformity involving L4. 3. Grade Ianterolisthesis of L4 in relation to L5 and L5 in relation to L4. 4. Degenerative disc disease throughout the lumbar spine. 5. Moderate bilateral foraminal narrowing at L3-4, 4-5 and L5-S1. 6. Calcified nonobstructing bilateral renal calculi. 7. Small bilateral pleural effusions are noted. Electronically signed by: Wilmer Sow MD 09/03/2017 9:56 AM EDT
--- NOTE | 2017-09-03 10:22 | PD ---
Physical Exam Date Seen by Provider: Sep 03, 2017 Time Seen by Provider: 10:21 Narrative 81-year-old male who presented with quite severe pain in the right lumbar area. He has a history of severe back trouble. He has had surgery. His neurosurgeon is told him he cannot have anymore surgery. He has an implanted morphine pump. He is on Coumadin and has had a retroperitoneal hemorrhage in the past. The pain that is having started fairly abruptly last night and has been quite severe. He was seen initially by Dr. Milan who ordered workup including CT of the lumbar spine and CT of the abdomen and pelvis. The CT of the abdomen and pelvis is negative for retroperitoneal hemorrhage. He is noted to have kidney stones but there are no ureteral stones. CT of the lumbar spine shows severe degenerative and postoperative changes. Patient has been given some Dilaudid and his report some improvement in his pain. I believe that the pain is having now is an exacerbation of his back pain Dr. Milan has written a prescription for Percocet Data Data Last Documented VS Vital Signs Date Time Temp Pulse Resp B/P (MAP) Pulse Ox O2 Delivery O2 Flow Rate FiO2 09/03/17 09:23 67 16 186/92 (123) 98 Nasal Cannula 2.00 09/03/17 05:33 98.3 Orders Orders Iv Access Insert/Monitor (09/03/17 05:55) Ecg Monitoring (09/03/17 05:55) Oximetry (09/03/17 05:55) Morphine Inj (Morphine Inj) (09/03/17 06:00) Ondansetron Inj (Zofran Inj) (09/03/17 06:00) Urinalysis - C+S If Indicated (09/03/17 07:02) Complete Blood Count With Diff (09/03/17 07:13) Comprehensive Metabolic Panel (09/03/17 07:13) Prothrombin Time / Inr (Pt) (09/03/17 07:13) Ct Abd/Pel W Iv Contrast(Rout) (09/03/17 07:13) Ct Lumb Spine W/O Contrast (09/03/17 ) Hydromorphone Pf Inj (Dilaudid Pf Inj) (09/03/17 07:30) Nebivolol (Bystolic) (09/03/17 07:30) Valsartan (Diovan) (09/03/17 07:30) Furosemide (Lasix) (09/03/17 07:30) Valsartan (Diovan) (09/03/17 07:45) Hydromorphone Pf Inj (Dilaudid Pf Inj) (09/03/17 07:45) Iohexol 350 Inj (Omnipaque 350 Inj) (09/03/17 08:26) Labs Laboratory Tests Test 09/03/17 07:23 09/03/17 07:30 White Blood Count 6.0 TH/MM3 Red Blood Count 4.11 MIL/MM3 Hemoglobin 11.8 GM/DL Hematocrit 34.8 % Mean Corpuscular Volume 84.6 FL Mean Corpuscular Hemoglobin 28.7 PG Mean Corpuscular Hemoglobin Concent 33.9 % Red Cell Distribution Width 15.2 % Platelet Count 197 TH/MM3 Mean Platelet Volume 8.4 FL Neutrophils (%) (Auto) 71.1 % Lymphocytes (%) (Auto) 15.3 % Monocytes (%) (Auto) 10.2 % Eosinophils (%) (Auto) 3.1 % Basophils (%) (Auto) 0.3 % Neutrophils # (Auto) 4.3 TH/MM3 Lymphocytes # (Auto) 0.9 TH/MM3 Monocytes # (Auto) 0.6 TH/MM3 Eosinophils # (Auto) 0.2 TH/MM3 Basophils # (Auto) 0.0 TH/MM3 CBC Comment DIFF FINAL Differential Comment Prothrombin Time 22.4 SEC Prothromb Time International Ratio 2.2 RATIO Blood Urea Nitrogen 21 MG/DL Creatinine 0.66 MG/DL Random Glucose 134 MG/DL Total Protein 7.6 GM/DL Albumin 3.4 GM/DL Calcium Level 9.1 MG/DL Alkaline Phosphatase 106 U/L Aspartate Amino Transf (AST/SGOT) 22 U/L Alanine Aminotransferase (ALT/SGPT) 21 U/L Total Bilirubin 0.8 MG/DL Sodium Level 138 MEQ/L Potassium Level 4.0 MEQ/L Chloride Level 101 MEQ/L Carbon Dioxide Level 30.0 MEQ/L Anion Gap 7 MEQ/L Estimat Glomerular Filtration Rate 116 ML/MIN Urine Collection Type CLEAN CATCH Urine Color YELLOW Urine Turbidity CLEAR Urine pH 7.5 Urine Specific [place] 1.010 Urine Protein NEG mg/dL Urine Glucose (UA) NEG mg/dL Urine Ketones NEG mg/dL Urine Occult Blood NEG Urine Nitrite NEG Urine Bilirubin NEG Urine Urobilinogen 0.2 MG/DL Urine Leukocyte Esterase NEG Urine RBC 0-3 /hpf Urine Squamous Epithelial Cells 0-5 /hpf Microscopic Urinalysis Comment CULT NOT INDICATED MDM Medical Record Reviewed: Yes Supervised Visit with CHRIS: Yes Differential Diagnosis Differential includes renal colic, retroperitoneal hemorrhage, back pain exacerbation Narrative Course Workup is negative for renal colic or retroperitoneal hemorrhage Diagnosis Primary Impression: Acute lumbosacral myofascial strain Additional Instruction: Acute lumbosacral strain Scripts Oxycodone-Acetaminophen (Percocet) 10-325 mg Tab 1 TAB PO Q4H Y for PAIN, #20 TAB 0 Refills Prov: Josiah Milan MD 09/03/17 Disposition: 01 DISCHARGE HOME Condition: Stable Diogenes Rivas MD Sep 03, 2017 10:22
[2017-09-08] MEDS ORDERED: FINA5TAB2 PO (15:15)
[2017-09-08] MEDS ORDERED: FURO1TAB62 PO (15:15)
[2017-09-08] MEDS ORDERED: POTA10CA PO (15:15)
== END 2017-09-03 10:33 | disposition home or self-care (01) ==
LOC: PHED 05:27
DX: S39.012A Strain of muscle, fascia and tendon of lower back, initial encounter (principal); X58.XXXA Exposure to other specified factors, initial encounter; M19.90 Unspecified osteoarthritis, unspecified site; I48.91 Unspecified atrial fibrillation; E11.9 Type 2 diabetes mellitus without complications; E78.00 Pure hypercholesterolemia, unspecified; I10 Essential (primary) hypertension; Z85.828 Personal history of other malignant neoplasm of skin; Z87.442 Personal history of urinary calculi
CPT/HCPCS: 72131; 74177; 80053; 81001; 85025; 85610; 96374; 96375; 99284; J1170; J2270; J2405; Q9967

== ENCOUNTER → 2017-09-09 | Outpatient (CLI) | payer MEDICARE, BC ==
[~2017-09-09] VITALS: Ht 180.3 cm; Wt 90.2 kg
[~2017-09-09] MED LIST changes: +CHLORHEXIDINE GLUCONATE 2 % 1 PACK (2 CLOTHS) TOPICAL PRN; +FINA5TAB2 PO; +FURO1TAB62 PO; +LACTATED RINGER'S 1000 ML IV PRN; +LIDOCAINE HCL 1% PF 5 ML SYRINGE OTHER ONE; +METOPROLOL TARTRATE 25 MG TAB PO PRN; +PERC10TA27 PO; +POTA10CA PO; +POVIDONE IODINE 5% (ANTISEPSIS KIT) 4 APPLICATIONS EACH NARE PRN; +PROPOFOL 200 MG/20 ML AMP IV ONE; +SODIUM CHLORID 0.9% 500 ML IV PRN
[2017-09-09 11:55] LABS: INTERNATIONAL NORMALIZED RATIO 1.1 RATIO; PROTHROMBIN TIME - PATIENT 11.4 SEC (9.8-11.6)
--- NOTE | 2017-09-09 12:59 | GIPROC ---
[facility] [address] [facility]. [facility], [address] EGD PROCEDURE REPORT EXAM DATE: 09/09/2017 PATIENT NAME: Wilmer Pierre MR #: [id number] BIRTHDATE: 1935 ATTENDING: Kael Bishop MD ORDER #: [id number] SOLAR THERMAL TECHNICIAN: Eugenio Frankel and Vero Amanda STATUS: outpatient INDICATIONS: The patient is a 81 yr old male here for an EGD due to dysphagia for solids and liquids at the level of the throat with frequent throat clearing. PROCEDURE PERFORMED: EGD with biopsies/esophageal dilation. He takes no NSAIDS but does take Cymbalta. MEDICATIONS: Per Anesthesia . TOPICAL ANESTHETIC: none CONSENT: The patient understands the risks and benefits of the procedure and understands that these risks include, but are not limited to: sedation, allergic reaction, infection, perforation and/or bleeding. Alternative means of evaluation and treatment include, among others: physical exam, x-rays, and/or surgical intervention. The patient elects to proceed with this endoscopic procedure. medical equipment was checked for proper function. Hand hygiene and appropriate measures for infection prevention was taken. After the risks, benefits and alternatives of the procedure were thoroughly explained, Informed consent was verified, confirmed and timeout was successfully executed by the treatment team. The patient was anesthetized with topical anesthesia and the Pentax [id number] endoscope was introduced through the mouth and advanced to the 2nd portion of the duodenum . Retroflexion was performed and was normal The gastroscope was then slowly withdrawn and removed. 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 Antral erosions were noted; biopsies were taken to check for H. pylori infection. The pylorus and duodenum appeared normal. ADVERSE EVENTS: There were no complications. IMPRESSIONS: As above. Retroflexion was performed and was normal RECOMMENDATIONS: Avoid cold fluid/foods and drink warm liquid, especially before and with pills and meals. Begin ranitidine or Zantac, 150mg, twice per day to heal the erosions. Return office visit in two weeks to discuss the esophagus and the stomach biopsy results. PATIENT CONDITION: stable DISPOSITION: Home REPEAT EXAM: Kael Bishop MD eSigned: Kael Bishop MD 09/09/2017 12:59 PM cc: PATIENT NAME: Wilmer Pierre MR#: [id number]
--- NOTE | 2017-09-09 13:37 | EKG ---
Date Performed: 09/09/2017 Time Performed: 10:41:02 PTAGE: 81 years EKG: ATRIAL FIBRILLATION BORDERLINE LEFT AXIS DEVIATION MODERATE INTRAVENTRICULAR CONDUCTION DEL AY ABNORMAL RHYTHM ECG PREVIOUS TRACING : 07/25/2013 11.01 DOCTOR: Bryant Farooq Interpretating Date/Time 09/09/2017 13:35:51
[2017-09-09 14:30] VITALS: BP 170/80; PULSE 63; RESP 20; TEMP 96.8; O2SAT 97
== END ==
LOC: HSDC 09:50
DX: K22.2 Esophageal obstruction (principal); R13.10 Dysphagia, unspecified; K29.50 Unspecified chronic gastritis without bleeding; D64.9 Anemia, unspecified; I48.91 Unspecified atrial fibrillation; I10 Essential (primary) hypertension
CPT/HCPCS: 00731; 43239; 43248; 85610; 88305; 88312; 93005; C1769; J7120

== ENCOUNTER 2018-01-20 16:38 | Observation (INO) ==
[2018-01-20] MEDS ORDERED: Pantoprazole Inj 40 MG Vial IV.PUSH ONE (17:49)
--- NOTE | 2018-01-20 17:57 | ED ---
HPI General Chief complaint: GI Bleed Stated complaint: Bloody Stool x1Wk Time Seen by Provider: 01/20/18 17:35 Source: patient Mode of arrival: ambulatory Limitations: no limitations History of Present Illness HPI Narrative: 82-year-old male complains of generalized malaise and weakness and dizziness and black tarry stool. Patient states that symptoms started 2 days ago. Patient's news photographer Dr. Chow. Patient has history of atrial fibrillation was on Coumadin. Coumadin was stopped and patient was advised to start taking Xarelto a week ago. Patient states that he has mild intermittent cramping of the abdomen since yesterday. Patient denies any fever chills. Patient has history of chronic back pain and has morphine pump in place. Patient also has history hypertension, borderline diabetes, hyperlipidemia. Patient states that he drinks alcohol occasionally. Patient is a non-smoker. Patient has history of BPH status post laser surgery in the past. MD complaint: Reports melena Onset (ago): day(s) Pain Consistency: intermittent Severity: mild Relieving factors: none Exacerbating factors: none Context: Reports anticoagulant use Associated symptoms: Reports abdominal pain, malaise and weakness Treatments Prior to Arrival: Reports none Related Data Home Medications Medication Instructions Recorded Confirmed ascorbic acid (vitamin C) [Vitamin 500 mg PO DAILY 01/20/18 01/20/18 C] azelastine 1 spray INTRANASAL BID 01/20/18 01/20/18 coenzyme Q10 [CoQ-10] 100 mg PO DAILY 01/20/18 01/20/18 duloxetine [Cymbalta] 30 mg PO QAM 01/20/18 01/20/18 duloxetine [Cymbalta] 60 mg PO QPM 01/20/18 01/20/18 finasteride 5 mg PO DAILY 01/20/18 01/20/18 fluticasone 1 spray INTRANASAL BID 01/20/18 01/20/18 furosemide 20 mg PO DAILY 01/20/18 01/20/18 irbesartan-hydrochlorothiazide 1 tab PO BID 01/20/18 01/20/18 multivitamin 1 tab PO DAILY 01/20/18 01/20/18 nebivolol [Bystolic] 10 mg PO BID 01/20/18 01/20/18 omega 7-qgk-kiw-fish oil [Fish Oil] 1 cap PO DAILY 01/20/18 01/20/18 pentoxifylline 400 mg PO TID 01/20/18 01/20/18 pitavastatin calcium [Livalo] 1 mg PO DAILY 01/20/18 01/20/18 potassium chloride [Klor-Con 10] 10 meq PO DAILY 01/20/18 01/20/18 ranitidine HCl 150 mg PO BID 01/20/18 01/20/18 rivaroxaban [Xarelto] 20 mg PO QPM 01/20/18 01/20/18 tamsulosin [Flomax] 0.4 mg PO DAILY 01/20/18 01/20/18 Allergies Allergy/AdvReac Type Severity Reaction Status Date / Time gabapentin AdvReac Severe CONFUSION, Unverified 01/20/18 16:50 HALLUCINATIONS Review of Systems ROS: all other systems reviewed are negative PMFSH History History Provided By: Patient Social History Social History Substance History: No History of Abuse Second Hand Smoke Exposure: No Smoking Status: Never smoker How Often Do You Have a Drink Containing Alcohol: 2 to 3 times a week Recent Travel in [facility] within the Last 8 Weeks: No Recent Out of Country Travel within the Last 8 Weeks: No Exam Narrative Exam Narrative: GENERAL: Well-nourished, well-developed patient. SKIN: Focused skin assessment warm/dry. HEAD: Normocephalic. EYES: No scleral icterus. No injection or drainage. NECK: Supple, trachea midline. No JVD or lymphadenopathy. CARDIOVASCULAR: Regular rate and rhythm without murmurs, gallops, or rubs. RESPIRATORY: Breath sounds equal bilaterally. No accessory muscle use. GASTROINTESTINAL: Abdomen soft, non-tender, nondistended. Rectal exam patient has dark maroon looking stool, Hemoccult positive. MUSCULOSKELETAL: No cyanosis, or edema. BACK: Nontender without obvious deformity. No CVA tenderness. Neurologic exam: Patient awake alert oriented x3. Patient moves all extremity well. No obvious focal neurological deficit. Course Initial Documented Vital Signs Temperature 97.7 F 01/20/18 16:44 Pulse Rate 73 01/20/18 16:44 Blood Pressure 120/54 L 01/20/18 16:44 Pulse Oximetry 99 01/20/18 16:44 Last Documented Vital Signs Temperature 97.7 F 01/20/18 16:44 Pulse Rate 67 01/20/18 18:28 Respiratory Rate 18 01/20/18 18:28 Blood Pressure 183/77 H 01/20/18 18:28 Pulse Oximetry 96 01/20/18 18:28 Medical Decision Making MDM Narrative Medical decision making narrative: 82-year-old male with GI bleed. Patient on Xarelto. History of atrial fibrillation. Normal saline solution 125 cc an hour. Protonix 40 mg IV. Protonix drip started. Medical Screen Exam Complete: Yes Emergency Medical Condition: Yes Differential Diagnosis Differential Diagnosis: Differential diagnosis including upper versus lower GI bleed, colitis, diverticulosis, diverticulitis, AV malformation, hemorrhoidal bleed. Lab Data Lab results reviewed: Yes I reviewed the patient's lab results. Result diagrams: 01/20/18 18:04 01/20/18 18:04 Lab Results 01/20/18 01/20/18 01/20/18 Range/Units 18:04 18:04 18:04 CBC w Diff Auto diff final WBC 7.8 (4.0-11.0) th/mm3 RBC 3.11 L (4.50-5.90) mil/mm3 Hgb 8.9 L (13.0-17.0) gm/dL Hct 26.7 L (39.0-51.0) % MCV 85.8 (80.0-100.0) fL MCH 28.5 (27.0-34.0) pg MCHC 33.3 (32.0-36.0) % RDW 16.5 (11.6-17.2) % Plt Count 301 (150-450) th/mm3 MPV 7.2 (7.0-11.0) fL Neut % (Auto) 72.2 H (16.0-70.0) % Lymph % (Auto) 14.5 (9.0-44.0) % Larue % (Auto) 10.0 H (0.0-8.0) % Eos % (Auto) 3.1 (0.0-4.0) % Baso % (Auto) 0.2 (0.0-2.0) % Neut # (Auto) 5.7 (1.8-7.7) th/mm3 Lymph # (Auto) 1.1 (1.0-4.8) th/mm3 Larue # (Auto) 0.8 (0.0-0.9) th/mm3 Eos # (Auto) 0.2 (0.0-0.4) th/mm3 Baso # (Auto) 0.0 (0.0-0.2) th/mm3 WBC Differential . Differential Comment . PT 11.9 H (9.8-11.6) sec INR 1.2 Ratio APTT 40.1 H (24.3-30.1) sec Sodium 138 (136-145) meq/L Potassium 3.5 (3.5-5.1) meq/L Chloride 100 (98-107) meq/L Carbon Dioxide 32.4 H (21.0-32.0) meq/L Anion Gap 6 (5-15) meq/L BUN 32 H (7-18) mg/dL Creatinine 0.87 (0.60-1.30) mg/dL Estimated GFR 84 L (>89) mL/min Random Glucose 173 H (74-106) mg/dL Calcium 8.8 (8.5-10.1) mg/dL Total Bilirubin 0.4 (0.2-1.0) mg/dL AST 14 L (15-37) U/L ALT 16 (12-78) U/L Alkaline Phosphatase 104 (45-117) U/L Total Protein 7.1 (6.4-8.2) g/dL Albumin 3.0 L (3.4-5.0) g/dL Lipase 42 L (73-393) U/L Discharge Plan Discharge Disposition Patient Disposition: 30 Still Patient Discharge Details Diagnosis: Acute GI bleeding, Anemia Physicians Team ED Provider: Deni Butcher Primary Care Provider: Quique Roy Rxs /Orders / Referrals /Forms Prescriptions: No Action multivitamin Tablet 1 tab PO DAILY RF: 0 irbesartan-hydrochlorothiazide 150-12.5 mg Tablet 1 tab PO BID RF: 0 potassium chloride [Klor-Con 10] 10 mEq Tablet Extended Release 10 meq PO DAILY RF: 0 pentoxifylline 400 mg Tablet Extended Release 400 mg PO TID RF: 0 ascorbic acid (vitamin C) [Vitamin C] 500 mg Tablet 500 mg PO DAILY RF: 0 tamsulosin [Flomax] 0.4 mg Capsule 0.4 mg PO DAILY RF: 0 ranitidine HCl 150 mg Capsule 150 mg PO BID RF: 0 furosemide 20 mg Tablet 20 mg PO DAILY RF: 0 azelastine 137 mcg (0.1 %) Aerosol,[place] 1 spray INTRANASAL BID RF: 0 fluticasone 50 mcg/actuation [place],Suspension 1 spray INTRANASAL BID RF: 0 finasteride 5 mg Tablet 5 mg PO DAILY RF: 0 coenzyme Q10 [CoQ-10] 100 mg Capsule 100 mg PO DAILY RF: 0 duloxetine [Cymbalta] 30 mg Capsule,Delayed Release(Dr/Ec) 30 mg PO QAM RF: 0 duloxetine [Cymbalta] 60 mg Capsule,Delayed Release(Dr/Ec) 60 mg PO QPM RF: 0 nebivolol [Bystolic] 10 mg Tablet 10 mg PO BID RF: 0 pitavastatin calcium [Livalo] 1 mg Tablet 1 mg PO DAILY RF: 0 rivaroxaban [Xarelto] 20 mg Tablet 20 mg PO QPM RF: 0 omega 3-hgw-hqi-fish oil [Fish Oil] 360-1,200 mg Capsule,Delayed Release(Dr/Ec ) 1 cap PO DAILY RF: 0 Status ED Status: With Doctor
[2018-01-20 18:14] LABS: Baso % (Auto) 0.2 % (0.0-2.0); Eos # (Auto) 0.2 th/mm3 (0.0-0.4); Eos % (Auto) 3.1 % (0.0-4.0); Hematocrit 26.7 % (39.0-51.0); Hemoglobin 8.9 gm/dL (13.0-17.0); Lymph # (Auto) 1.1 th/mm3 (1.0-4.8); Lymph % (Auto) 14.5 % (9.0-44.0); Mean Corpuscular HGB Conc 33.3 % (32.0-36.0); Mean Corpuscular Hemoglobin 28.5 pg (27.0-34.0); Mean Corpuscular Volume 85.8 fL (80.0-100.0); Mean Platelet Volume 7.2 fL (7.0-11.0); Mono # (Auto) 0.8 th/mm3 (0.0-0.9); Neut # (Auto) 5.7 th/mm3 (1.8-7.7); Neut % (Auto) 72.2 % (16.0-70.0); Platelet Count 301 th/mm3 (150-450); Red Blood Count 3.11 mil/mm3 (4.50-5.90); Red Cell Distribution Width 16.5 % (11.6-17.2); White Blood Count 7.8 th/mm3 (4.0-11.0)
[2018-01-20] MEDS: Sod Chloride 0.9% Inj 1,000 ML IV.CONT SCH (18:21)
[2018-01-20 18:23] LABS: Chloride 100 meq/L (98-107); Potassium 3.5 meq/L (3.5-5.1); Sodium 138 meq/L (136-145)
[2018-01-20 18:26] LABS: Anion Gap 6 meq/L (5-15); Calcium 8.8 mg/dL (8.5-10.1); Carbon Dioxide 32.4 meq/L (21.0-32.0); Glucose,Random 173 mg/dL (74-106); Lipase 42 U/L (73-393)
[2018-01-20 18:27] LABS: Activated Partial Thrombo Time 40.1 sec (24.3-30.1); Blood Urea Nitrogen 32 mg/dL (7-18); INR 1.2 Ratio; Prothrombin Time 11.9 sec (9.8-11.6)
[2018-01-20 18:29] LABS: Alanine Aminotransferase 16 U/L (12-78); Aspartate Aminotransferase 14 U/L (15-37)
[2018-01-20 18:30] LABS: Glomerular Filtration Rate 84 mL/min (>89)
[2018-01-20 18:31] LABS: Total Protein 7.1 g/dL (6.4-8.2)
[2018-01-20 18:32] LABS: Alkaline Phosphatase 104 U/L (45-117)
[2018-01-20] MEDS ORDERED: Bisacodyl 10 MG Supp RECTAL PRN (19:51)
[2018-01-20] MEDS: Pantoprazole Inj 80 MG in Sodium Chlor 0.9% Inj 100 ML IV.CONT SCH (20:24)
[2018-01-20] MEDS ORDERED: Dextrose 50% in Water 50 ML Vial IV.PUSH PRN (20:44)
[2018-01-20] MEDS: Duloxetine 60 MG DR Capsule PO SCH (20:53)
[2018-01-20] MEDS ORDERED: AZELASTINE NASAL SCH (21:00)
[2018-01-20] MEDS: Insulin NovoLOG Aspart Correctional Sugar Inj SQ SCH (21:41)
[2018-01-20] MEDS ORDERED: hydrALAZINE 25 MG Tablet PO ONE (23:33)
[2018-01-21] MEDS: Pantoprazole Inj 80 MG in Sodium Chlor 0.9% Inj 100 ML IV.CONT SCH (05:59)
[2018-01-21] MEDS: Sod Chloride 0.9% Inj 1,000 ML IV.CONT SCH ×2 (06:00→18:00)
[2018-01-21 06:05] LABS: Baso % (Auto) 0.1 % (0.0-2.0); Eos # (Auto) 0.3 th/mm3 (0.0-0.4); Eos % (Auto) 3.2 % (0.0-4.0); Hemoglobin 8.3 gm/dL (13.0-17.0); Lymph % (Auto) 12.4 % (9.0-44.0); Mean Corpuscular Hemoglobin 27.9 pg (27.0-34.0); Mean Corpuscular Volume 84.6 fL (80.0-100.0); Mono # (Auto) 0.8 th/mm3 (0.0-0.9); Mono % (Auto) 9.8 % (0.0-8.0); Neut # (Auto) 6.2 th/mm3 (1.8-7.7); Neut % (Auto) 74.5 % (16.0-70.0); Platelet Count 241 th/mm3 (150-450); Red Blood Count 2.96 mil/mm3 (4.50-5.90); White Blood Count 8.3 th/mm3 (4.0-11.0)
[2018-01-21 06:23] LABS: Chloride 105 meq/L (98-107); Potassium 3.7 meq/L (3.5-5.1); Sodium 141 meq/L (136-145)
[2018-01-21 06:57] LABS: Alanine Aminotransferase 15 U/L (12-78); Albumin 2.7 g/dL (3.4-5.0); Alkaline Phosphatase 86 U/L (45-117); Anion Gap 3 meq/L (5-15); Aspartate Aminotransferase 13 U/L (15-37); Blood Urea Nitrogen 23 mg/dL (7-18); Calcium 8.3 mg/dL (8.5-10.1); Glomerular Filtration Rate Greater Than 89 mL/min (>89); Glucose,Random 155 mg/dL (74-106); Total Protein 6.6 g/dL (6.4-8.2)
[2018-01-21] MEDS: Insulin NovoLOG Aspart Correctional Sugar Inj SQ SCH ×4 (08:10→22:13)
[2018-01-21] MEDS: Pentoxifylline 400 MG Controlled Release Tablet PO SCH ×3 (08:39→18:16)
[2018-01-21] MEDS: Finasteride 5 MG Tablet PO SCH (08:40)
[2018-01-21] MEDS ORDERED: Non-Formulary Drug (Coenzyme Q10 [Coq-10] 100 MG) PO SCH (09:00)
--- NOTE | 2018-01-21 10:25 | P.HP ---
History of Present Illness Primary Care Physician: Quique Roy MD Chief Complaint: Generalized malaise, weakness and black tarry stool History of Present Illness: This is an 82-year-old male patient with a known medical history of atrial fibrillation on Xarelto, hypertension who presented to the ED with complaints of generalized malaise, weakness and black tarry stools. Patient states that his symptoms started 2 days prior to presentation. He states that he sees his safety patrol officer, Dr. Chow, has been treated with Coumadin for control of his atrial fibrillation for many years now, over the past week safety patrol officer switched him over to Xarelto, and since that time he has had above complaints. He also admits to some abdominal pain which has resolved upon time of assessment. Anyways patient has been fatigued as well as weak over the past week, he has noted every bowel movement with black tarry stools. Denies any bright red blood in stool. He denies any recent fevers, chest pain, headache, chills, cough, shortness of breath, abdominal pain, nausea, vomiting, diarrhea or dysuria. Patient does have chronic back pain, has been seeing pain management and has a morphine pump in place. Lately he has been weaning his dose of morphine for management patient denies any other changes to his medicines. He admits to compliance to all his medications. Denies any tobacco abuse. Admits to occasional alcohol use. 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 Is healing well without any problems. He does have history of infection in his spine in 2016 and at that time he had his back surgery. - Diagnosis (1) Acute GI bleeding Review of Systems All other systems reviewed negative except as stated in HPI PMFSH - History History Provided By: Patient - Medical History Medical History: Medical History (Last Reviewed 01/21/18 @ 11:01 by Eli Gallagher) Atrial fibrillation Borderline diabetes Chronic back pain Enlarged prostate High cholesterol Hypertension - Surgical History Surgical History: Surgical History (Last Updated 01/21/18 @ 11:01 by Eli Gallagher) H/O: knee surgery Previous back surgery - Family History Family History: Family History (Last Updated 01/21/18 @ 11:02 by Eli Gallagher) Other Family history non-contributory - Social History I have reviewed the patient's Social History: Yes - Tobacco History Second Hand Smoke Exposure: No Tobacco Use In Past 30 Days: No Smoking Status: Former smoker Tobacco Type: Cigarettes - Alcohol History How Often Do You Have a Drink Containing Alcohol: 2 to 4 times a month - Substance Use History Substance History: No History of Abuse - Travel History Recent Travel in the [place] Within the Last 8 Weeks: No Recent Travel Out of the Country Within the Last 8 Weeks: No - Immunization History Tetanus Immunization: <5 Years Medications and Allergies Active Medications: Active Medications Al Hydroxide/Mg Hydroxide (Milk Of Magnesia Liq) 30 ml PO Q12H PRN PRN Reason: Mild Constipation Bisacodyl (Dulcolax Supp) 10 mg RECTAL DAILY PRN PRN Reason: SEVERE CONSITIPATION Dextrose (D50w Vial) 50 ml IV.PUSH UNSCH PRN PRN Reason: PER HYPOGLYCEMIA PROTOCOL Duloxetine HCl (Cymbalta) 30 mg PO DAILY [facility] Last Admin: 01/21/18 09:04 Dose: 30 mg Duloxetine HCl (Cymbalta) 60 mg PO HS [facility] Last Admin: 01/20/18 20:53 Dose: 60 mg Finasteride (Proscar) 5 mg PO DAILY [facility] Last Admin: 01/21/18 08:40 Dose: 5 mg Fluticasone Propionate (Flonase Nasal Coral) 1 spray EACH NARE BID PRN PRN Reason: ALLERGIES Glucagon (Glucagon Inj) 1 mg OTHER PRN PRN PRN Reason: for Hypoglycemia Protocol Sodium Chloride (Ns Inj) 1,000 mls @ 60 mls/hr IV.CONT .[id number] [facility] Last Admin: 01/21/18 06:00 Dose: 60 mls/hr Pantoprazole Sodium 80 mg/ (Sodium Chloride) 100 mls @ 10 mls/hr IV.CONT CONT [facility] Last Admin: 01/21/18 05:59 Dose: 10 mls/hr Insulin Aspart (Novolog Insulin Correctional Sugar Inj) 0 unit SQ ACHS [facility]; Protocol Last Admin: 01/21/18 08:10 Dose: Not Given Lactulose (Lactulose Liq) 30 ml PO DAILY PRN PRN Reason: SEVERE CONSITIPATION Nebivolol (Bystolic) 10 mg PO BID [facility] Last Admin: 01/21/18 08:39 Dose: 10 mg Patient Own Medication ( Azelastine [ Azelastine] 1 Coral) 0 each NASAL BID [facility] Pentoxifylline (Trental Sr) 400 mg PO TID [facility] Last Admin: 01/21/18 08:39 Dose: 400 mg Potassium Chloride (Klor-Con 10) 10 meq PO DAILY [facility] Last Admin: 01/21/18 08:39 Dose: 10 meq Pravastatin Sodium (Pravachol) 20 mg PO DAILY [facility] Last Admin: 01/21/18 08:39 Dose: 20 mg Sennosides (Senokot) 17.2 mg PO Q12H PRN PRN Reason: Moderate Constipation Tamsulosin HCl (Flomax) 0.4 mg PO DAILY [facility] Last Admin: 01/21/18 08:39 Dose: 0.4 mg Allergies Allergy/AdvReac Type Severity Reaction Status Date / Time gabapentin AdvReac Severe CONFUSION, Verified 01/20/18 21:08 HALLUCINATIONS Home Medications Medication Instructions Recorded Confirmed Type ascorbic acid (vitamin C) [Vitamin 500 mg PO DAILY 01/20/18 01/20/18 History C] azelastine 1 spray INTRANASAL BID 01/20/18 01/20/18 History coenzyme Q10 [CoQ-10] 100 mg PO DAILY 01/20/18 01/20/18 History duloxetine [Cymbalta] 30 mg PO QAM 01/20/18 01/20/18 History duloxetine [Cymbalta] 60 mg PO QPM 01/20/18 01/20/18 History finasteride 5 mg PO DAILY 01/20/18 01/20/18 History fluticasone 1 spray INTRANASAL BID 01/20/18 01/20/18 History furosemide 20 mg PO DAILY 01/20/18 01/20/18 History irbesartan-hydrochlorothiazide 1 tab PO BID 01/20/18 01/20/18 History multivitamin 1 tab PO DAILY 01/20/18 01/20/18 History nebivolol [Bystolic] 10 mg PO BID 01/20/18 01/20/18 History omega 4-itc-npv-fish oil [Fish Oil] 1 cap PO DAILY 01/20/18 01/20/18 History pentoxifylline 400 mg PO TID 01/20/18 01/20/18 History pitavastatin calcium [Livalo] 1 mg PO DAILY 01/20/18 01/20/18 History potassium chloride [Klor-Con 10] 10 meq PO DAILY 01/20/18 01/20/18 History ranitidine HCl 150 mg PO BID 01/20/18 01/20/18 History rivaroxaban [Xarelto] 20 mg PO QPM 01/20/18 01/20/18 History tamsulosin [Flomax] 0.4 mg PO DAILY 01/20/18 01/20/18 History Exam Vital signs: Vital Signs 01/20/18 16:44 01/20/18 16:49 01/20/18 17:49 Temperature 97.7 F Pulse Rate 73 70 70 Respiratory Rate 18 Blood Pressure 120/54 L 191/86 H Pulse Oximetry 99 98 98 01/20/18 18:11 01/20/18 18:28 01/20/18 19:30 Temperature Pulse Rate 74 67 72 Respiratory Rate 18 18 18 Blood Pressure 180/94 H 183/77 H 183/92 H Pulse Oximetry 98 96 95 01/20/18 20:33 01/20/18 21:57 01/20/18 23:11 Temperature 97.3 F L Pulse Rate 72 68 72 Respiratory Rate 18 18 20 Blood Pressure 201/93 H 189/84 H 209/95 H Pulse Oximetry 95 97 98 01/21/18 00:00 01/21/18 08:00 Temperature 97.4 F L 97.6 F Pulse Rate 73 71 Respiratory Rate 20 20 Blood Pressure 151/70 H 187/87 H Pulse Oximetry 96 98 Intake & Output 01/20/18 01/21/18 01/21/18 18:59 06:59 18:59 Intake Total 1100 / 1100 0 / 0 Output Total 750 / 750 125 / 125 Balance 350 / 350 -125 / -125 Weight 89.4 kg 89 kg Intake: IV 1100 / 1100 Protonix Inj 80 MG In NS Inj 100 / 100 100 ML @ 10 mls/hr IV.CONT CONT [facility] Rx#:[id number] NS Inj 1,000 ML @ 60 mls/hr IV. 1000 / 1000 CONT .[id number] [facility] Rx#: [id number] Oral 0 / 0 0 / 0 Output: Urine 750 / 750 125 / 125 Other: # Voids 2 Date of Last Bowel Movement 01/20/18 Weight On Admission 88.904 kg Narrative: GENERAL: Well-developed, well-nourished patient in [facility]. SKIN: Warm and dry. No rash. Left lower extremity skin cancer moved, dressing dry and intact. HEAD: Normocephalic. Atraumatic. EYES: Pupils equal and round. No scleral icterus. No injection or drainage. ENT: No nasal bleeding or discharge. Mucous membranes pink and moist. NECK: Supple. Trachea midline. CARDIOVASCULAR: Irregularly irregular rhythm. RESPIRATORY: No accessory muscle use. Clear to auscultation. Breath sounds equal bilaterally. GASTROINTESTINAL: Abdomen soft, non-tender, nondistended. Normoactive bowel sounds x4. No abdominal pain to palpation. MUSCULOSKELETAL: No obvious deformities. Extremities without clubbing, cyanosis , or edema. NEUROLOGICAL: Awake and alert. No obvious cranial nerve deficits. Motor grossly within normal limits. 5/5 muscle strength in bilateral upper and lower extremities. Normal speech. PSYCHIATRIC: Appropriate mood and affect; insight and judgment normal. Results - Labs CBC & Chem 7: 01/21/18 05:05 01/21/18 05:05 Labs: Laboratory Results - last 24 hr 01/20/18 01/20/18 01/20/18 18:04 18:04 18:04 CBC w Diff Auto diff final WBC 7.8 RBC 3.11 L Hgb 8.9 L Hct 26.7 L MCV 85.8 MCH 28.5 MCHC 33.3 RDW 16.5 Plt Count 301 MPV 7.2 Neut % (Auto) 72.2 H Lymph % (Auto) 14.5 [place] % (Auto) 10.0 H Eos % (Auto) 3.1 Baso % (Auto) 0.2 Neut # (Auto) 5.7 Lymph # (Auto) 1.1 [place] # (Auto) 0.8 Eos # (Auto) 0.2 Baso # (Auto) 0.0 WBC Differential . Differential Comment . PT 11.9 H INR 1.2 APTT 40.1 H Sodium 138 Potassium 3.5 Chloride 100 Carbon Dioxide 32.4 H Anion Gap 6 BUN 32 H Creatinine 0.87 Estimated GFR 84 L POC Glucose Random Glucose 173 H Calcium 8.8 Total Bilirubin 0.4 AST 14 L ALT 16 Alkaline Phosphatase 104 Total Protein 7.1 Albumin 3.0 L Lipase 42 L Blood Type Antibody Screen 01/20/18 01/20/18 01/21/18 18:04 21:13 05:05 CBC w Diff Auto diff final WBC 8.3 RBC 2.96 L Hgb 8.3 L Hct 25.0 L MCV 84.6 MCH 27.9 MCHC 33.0 RDW 16.0 Plt Count 241 MPV 8.0 Neut % (Auto) 74.5 H Lymph % (Auto) 12.4 [place] % (Auto) 9.8 H Eos % (Auto) 3.2 Baso % (Auto) 0.1 Neut # (Auto) 6.2 Lymph # (Auto) 1.0 [place] # (Auto) 0.8 Eos # (Auto) 0.3 Baso # (Auto) 0.0 WBC Differential . Differential Comment . PT INR APTT Sodium Potassium Chloride Carbon Dioxide Anion Gap BUN Creatinine Estimated GFR POC Glucose 138 H Random Glucose Calcium Total Bilirubin AST ALT Alkaline Phosphatase Total Protein Albumin Lipase Blood Type O Positive Antibody Screen Negative 01/21/18 01/21/18 05:05 08:06 CBC w Diff WBC RBC Hgb Hct MCV MCH MCHC RDW Plt Count MPV Neut % (Auto) Lymph % (Auto) [place] % (Auto) Eos % (Auto) Baso % (Auto) Neut # (Auto) Lymph # (Auto) [place] # (Auto) Eos # (Auto) Baso # (Auto) WBC Differential Differential Comment PT INR APTT Sodium 141 Potassium 3.7 Chloride 105 Carbon Dioxide 33.0 H Anion Gap 3 L BUN 23 H Creatinine 0.70 Estimated GFR Greater than 89 POC Glucose 155 H Random Glucose 155 H Calcium 8.3 L Total Bilirubin 0.6 AST 13 L ALT 15 Alkaline Phosphatase 86 Total Protein 6.6 Albumin 2.7 L Lipase Blood Type Antibody Screen Caprini VTE Risk Assessment Caprini VTE Risk Assessment: Moderate/High Risk (score >= 2) Caprini Risk Assessment Model: Point Value = 1 Point Value = 2 Point Value = 3 Point Value = 5 Age 41-60 Minor surgery BMI > 25 kg/m2 Swollen legs Varicose veins or History of unexplained or recurrent spontaneous Oral contraceptives or hormone replacement Sepsis (< 1 month) Serious lung disease, including pneumonia (< 1 month) Abnormal pulmonary function Acute myocardial infarction Congestive heart failure (< 1 month) History of inflammatory bowel disease Medical patient at bed rest Age 61-74 Arthroscopic surgery Major open surgery (> 45 min) Laparoscopic surgery (> 45 min) Malignancy Confined to bed (> 72 hours) Immobilizing plaster cast Central venous access Age >= 75 History of VTE Family history of VTE Factor V Leiden Prothrombin [id number] Lupus anticoagulant Anticardiolipin antibodies Elevated serum homocysteine Heparin-induced thrombocytopenia Other congenital or acquired thrombophilia Stroke (< 1 month) Elective arthroplasty Hip, pelvis, or leg fracture Acute spinal cord injury (< 1 month) Prophylaxis Regimen: Total Risk Factor Score Risk Level Prophylaxis Regimen 0-1 Low Early ambulation 2 Moderate Order ONE of the following: *Sequential Compression Device (SCD) *Heparin 5000 units SQ BID 3-4 Higher Order ONE of the following medications: *Heparin 5000 units SQ TID *Enoxaparin/Lovenox 40 mg SQ daily (WT < 150 kg, CrCl > 30 mL/min) *Enoxaparin/Lovenox 30 mg SQ daily (WT < 150 kg, CrCl > 10-29 mL/min) *Enoxaparin/Lovenox 30 mg SQ BID (WT < 150 kg, CrCl > 30 mL/min) AND/OR *Sequential Compression Device (SCD) 5 or more Highest Order ONE of the following medications: *Heparin 5000 units SQ TID (Preferred with Epidurals) *Enoxaparin/Lovenox 40 mg SQ daily (WT < 150 kg, CrCl > 30 mL/min) *Enoxaparin/Lovenox 30 mg SQ daily (WT < 150 kg, CrCl > 10-29 mL/min) *Enoxaparin/Lovenox 30 mg SQ BID (WT < 150 kg, CrCl > 30 mL/min) AND *Sequential Compression Device (SCD) Assessment and Plan - Assessment (1) Acute GI bleeding Code(s): K92.2 - Gastrointestinal hemorrhage, unspecified Status: Acute - Plan This is a pleasant 82-year-old male patient who presented to the ED with GI Bleed History of Hatch's esophagus -Patient complaint of generalized malaise, weakness and black tarry stool times 2 days prior to admission. -Patient has been on Coumadin for atrial fibrillation for several years when his safety patrol officer has recently changed to Xarelto over the past week. He follows with Dr. Chow. -Since the change with his anticoagulants he has complaints of black tarry stools. -Gastroenterology has been consulted, input and recommendations pending. Plan will be for patient to undergo a colonoscopy and EGD in a.m. -Will allow for clear liquids for now. N.p.o. at midnight. -Will trend H&H, monitor for any active bleeding. -Ensure hydration, continue gentle IVF. -Continue protonix gtt. -Supportive care. History of atrial fibrillation on anticoagulation -Patient's Xarelto has been held for now secondary to active GI bleed. -Continue on cardiac telemetry. A fib is controlled at this time. -Restart anticoagulation per GI recommendations. -Continue home Bystolic. Hypertension, chronic: Will continue home medications. Systolic mildly elevated. Will continue to trend BP. History of BPH: Continue home medications. DVT Prophylaxis: SCDs. Chemical prophylaxis held secondary to active GI bleed. Discharge Planning: Transfer to main hospital per GI request to undergo an EGD and colonoscopy tomorrow.
--- NOTE | 2018-01-21 11:05 | MB ---
cc: Mu Amaya MD DATE: 01/21/2018 REASON FOR GASTROENTEROLOGY CONSULTATION: Evaluation of anemia, melenic stools. HISTORY OF PRESENT ILLNESS: The patient presented to the [facility] institution with generalized malaise, weakness, dizziness, and black tarry stools. Symptoms began about 2 days ago. He is on anticoagulation therapy for atrial fibrillation. He was previously on Coumadin. This was changed over to Xarelto about a week ago. He has had some lower abdominal cramping. He denies any fever, chills, vomiting, or syncope. He has chronic back pain. He is maintained on morphine pump, which he has had for the past year. He denies heavy alcohol use or NSAID use. He was evaluated by Dr. Bishop in 02/2017 with colonoscopy. At that time, he had ongoing anemia. 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 He was stable at that time, although there was discussion of possible obliteration of that lesion with the APC device as an outpatient. Upper endoscopy was performed in 08/2017. He had antral gastric erosions noted. He did undergo dilation of the esophagus for cricopharyngeal dysphagia. As stated above, he presented here for evaluation of his ongoing symptoms. Once again, hemoglobin today is currently 8.9. PT/INR were 11.9 and 1.2 respectively. Liver enzymes were normal. I was asked to evaluate him further. PAST MEDICAL HISTORY: Includes diabetes, hypertension, hyperlipidemia, chronic back pain with morphine pump in place. Previous history of BPH with surgery in the past. MEDICATIONS AT HOME: Cymbalta, finasteride, Bystolic, pentoxifylline, ranitidine, Flomax, and Xarelto. ALLERGIES: GABAPENTIN. FAMILY HISTORY: No history of colorectal cancer. SOCIAL HISTORY: Nonsmoker, social drinker. Denies illicit drug use. REVIEW OF SYSTEMS: A 12-point review of systems as stated in the HPI. PHYSICAL EXAMINATION: GENERAL: Well-developed male, alert and oriented x 3, no acute distress. VITAL SIGNS: Currently stable. He is normotensive, afebrile. SKIN: Warm and dry. No unusual rashes. HEENT: Normocephalic. Sclerae are anicteric. Oral mucosa moist. NECK: Supple. No JVD, masses, or nodes. CARDIAC: S1, S2, regular rhythm. LUNGS: Clear to A and P. ABDOMEN: Obese, soft, nontender, palpable morphine pump in the left mid abdomen. There are no surgical scars noted. Bowel sounds are present. No organomegaly. There is no rebound tenderness. EXTREMITIES: Without clubbing, cyanosis ,or edema. He has a bandage over his left lower extremity. NEUROLOGICAL: No focal defects noted. IMPRESSION: An 82-year-old male presents with melena. Hemoglobin 8.9. History of anticoagulation therapy with Xarelto. Incidentally, he stopped this on Thursday of this week, which was 2 days ago. 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 PLAN: Would recommend the patient be transferred to [facility] for endoscopic and therapeutic intervention. We discussed this with the patient and his . We discussed the procedure, risks, and benefits of endoscopy and colonoscopy including the risks of bleeding, sepsis, perforation, risk of anesthesia. If the suspected the source is due to the angiodysplasia of the cecum, we will consider APC fulguration and/or clipping as well. If an upper GI source is found, we will address that matter as well. We will continue to hold her Xarelto. Monitor the H and H's closely. Once again, plans will be made to have the patient transferred to [facility] for clinical and therapeutic intervention. Thank you kindly for this consult. MD SOFIE Guerra/francisco , 10:09 AM , 10:20 AM
[2018-01-21] MEDS: Furosemide 20 MG Tablet PO SCH (11:46)
[2018-01-21] MEDS: Pantoprazole Inj 40 MG Vial IV.PUSH SCH (11:47)
[2018-01-21 12:11] LABS: Hematocrit 27.5 % (39.0-51.0); Hemoglobin 8.9 gm/dL (13.0-17.0)
[2018-01-21] MEDS ORDERED: PEG 3350/E-Lyte Soln 4000 ML Bottle PO ONE (16:00)
--- NOTE | 2018-01-21 16:23 | ECG ---
Date Performed: 01/20/2018 Time Performed: 18:32:20 PTAGE: 82 years EKG: ATRIAL FIBRILLATION BORDERLINE LEFT AXIS DEVIATION MODERATE INTRAVENTRICULAR CONDUCTION DEL AY ABNORMAL RHYTHM ECG PREVIOUS TRACING : 09/09/2017 10.41 Since the previous tracing, no significant change noted DOCTOR: Wesley Tatum Interpretating Date/Time 01/21/2018 16:22:44
[2018-01-21] MEDS: Duloxetine 60 MG DR Capsule PO SCH (22:11)
[2018-01-21 22:59] LABS: Hematocrit 28.8 % (39.0-51.0); Hemoglobin 9.5 gm/dL (13.0-17.0)
[2018-01-22] MEDS: Pantoprazole Inj 40 MG Vial IV.PUSH SCH ×2 (00:25→11:55)
[2018-01-22] MEDS ORDERED: Chlorhexidine Gluconate 2% 1 Pack (2 Cloths) TOPICAL ONE (01:15)
[2018-01-22] MEDS ORDERED: Sodium Chlor 0.9% Inj 500 ML IV.SIG SCH (02:00)
[2018-01-22 08:08] LABS: Hematocrit 24.4 % (39.0-51.0); Hemoglobin 8.3 gm/dL (13.0-17.0)
[2018-01-22] MEDS: Insulin NovoLOG Aspart Correctional Sugar Inj SQ SCH ×4 (08:52→21:08)
[2018-01-22] MEDS: Furosemide 20 MG Tablet PO SCH (08:53)
[2018-01-22] MEDS: Pentoxifylline 400 MG Controlled Release Tablet PO SCH ×3 (08:54→19:23)
[2018-01-22] MEDS: Finasteride 5 MG Tablet PO SCH (08:54)
--- NOTE | 2018-01-22 15:20 | P.PN ---
Subjective Interval history: recently switched to Xarelto from coumadin- for a fib felt fatigue , tired with melena seen with had some black tarry stools today looking forward to scope today Physical Exam Vital signs: Vital Signs 01/21/18 16:00 01/21/18 20:00 01/22/18 00:00 Temperature 97.5 F L 97.6 F 97.8 F Pulse Rate 72 68 74 Respiratory Rate 20 18 18 Blood Pressure 163/74 H 197/86 H 179/88 H Pulse Oximetry 100 95 96 01/22/18 04:00 01/22/18 08:00 01/22/18 12:00 Temperature 97.6 F 98.6 F 97.7 F Pulse Rate 68 76 78 Respiratory Rate 18 18 Blood Pressure 164/74 H 129/80 123/56 L Pulse Oximetry 95 93 L 97 Intake & Output 01/21/18 01/22/18 01/22/18 18:59 06:59 18:59 Intake Total 1340 / 1340 Output Total 225 / 225 300 / 300 Balance 1115 / 1115 -300 / -300 Weight 90.3 kg Intake: IV 1100 / 1100 Protonix Inj 80 MG In NS Inj 100 / 100 100 ML @ 10 mls/hr IV.CONT CONT [facility] Rx#:[id number] NS Inj 1,000 ML @ 60 mls/hr IV. 1000 / 1000 CONT .[id number] [facility] Rx#: [id number] Oral 240 / 240 Output: Urine 225 / 225 300 / 300 Other: Date of Last Bowel Movement 01/22/18 # Bowel Movements 4 2 Narrative: GENERAL: Well-developed, well-nourished patient in [place]. SKIN: Warm and dry. HEAD: Normocephalic. Atraumatic. EYES: Pupils equal and round. No scleral icterus. No injection or drainage. ENT: No nasal bleeding or discharge. Mucous membranes pink and moist. NECK: Supple. Trachea midline. CARDIOVASCULAR: Irregularly irregular rhythm. RESPIRATORY: No accessory muscle use. Clear to auscultation. Breath sounds equal bilaterally. GASTROINTESTINAL: Abdomen soft, non-tender, nondistended. Normoactive bowel sounds x4. No abdominal pain to palpation. MUSCULOSKELETAL: No obvious deformities. Extremities without clubbing, cyanosis , or edema. NEUROLOGICAL: Awake and alert. No obvious cranial nerve deficits. Motor grossly within normal limits. 5/5 muscle strength in bilateral upper and lower extremities. Normal speech. Results - Labs CBC & Chem 7: 01/22/18 07:55 01/21/18 05:05 Laboratory Results - last 24 hr 01/21/18 01/21/18 01/21/18 17:32 21:10 22:17 Hgb 9.5 L Hct 28.8 L POC Glucose 142 H 180 H 01/22/18 01/22/18 01/22/18 07:55 08:50 11:49 Hgb 8.3 L Hct 24.4 L POC Glucose 145 H 148 H Assessment and Plan - Assessment (1) Acute GI bleeding Code(s): K92.2 - Gastrointestinal hemorrhage, unspecified Status: Acute - Plan This is a pleasant 82-year-old male patient who presented to the ED with GI Bleed History of Hatch's esophagus S/P stretching done in the past per -Patient complaint of generalized malaise, weakness and black tarry stool times 2 days prior to admission. -Patient has been on Coumadin for atrial fibrillation for several years when his testing projects administrator has recently changed to Xarelto over the past week. He follows with Dr. Chow. -Since the change with his anticoagulants he has complaints of black tarry stools. -Gastroenterology ff- for EGD this pm Ff H and H History of atrial fibrillation- rate controlled on anticoagulation QUINTIN 2-3- age, HTN, "borderline DM" -Patient's Xarelto has been held for now secondary to active GI bleed. -Continue on cardiac telemetry. A fib is controlled at this time. -Restart anticoagulation per GI recommendations. -Continue home Bystolic. -we will consult his testing projects administrator in am- regarding chronic anticoagulation - will wait for EGD findings first - CBC, A1C in am Hypertension, chronic: Will continue home medications. History of BPH: Continue home medications. DVT Prophylaxis: SCDs. Chemical prophylaxis held secondary to active GI bleed. Discharge Planning: home
[2018-01-22] MEDS ORDERED: Phenylephrine/NS 1000 MCG/10ML Syringe IV.PUSH ONE (16:52)
[2018-01-22] MEDS ORDERED: Lidocaine PF 1% Inj 5 ML Syringe OTHER ONE (16:52)
--- NOTE | 2018-01-22 19:10 | MR ---
cc: Mu Amaya MD DATE: 01/22/2018 PROCEDURE PERFORMED: Upper endoscopy and colonoscopy with APC fulguration and angiodysplasia. INDICATIONS: The patient with GI bleed, anemia, known angiodysplasia of the cecum. Upper endoscopy is being performed to rule out any upper GI bleeding source as well. Photographs were taken. Premedication administered by anesthesiology. Monitoring with constant pulse oximeter, EKG, blood pressure monitor. PROCEDURE NOTE: After informed consent was obtained, and the procedure, risks, and benefits were explained to the patient and his including risks of bleeding, sepsis, perforation, risk of anesthesia. The video endoscope inserted in the esophagus. His upper endoscopy was essentially benign. Esophagus, stomach, and duodenum were examined and found to be normal without any obvious source of GI bleeding. There was no evidence of gastritis or gastric erosions or angiodysplasia. The scope was removed. The patient was repositioned, and colonoscopy was performed. There was residual stool and old blood noted throughout the colon, which made inspection of the colonic mucosa difficult. Also, the patient had a very tortuous colon as he had an intra-abdominal pain pump in place as well, which also probably made the exam difficult because of adhesions. Nonetheless, the scope was ultimately passed to the cecum with nursing assistance. In the cecum after lavaging the area, a large AVM was noted. This measured at least 2 cm. Using the APC device, working in a peripheral to central fashion, the area was carefully cauterized with short bursts of energy. Very minimal bleeding was noted. The area was not injected with epinephrine at this time. Postprocedure photographs revealed the lesion to be fairly well cauterized throughout without any active bleeding. The patient tolerated this procedure well, and no immediate complications were noted. He was sent to the recovery room in stable condition. 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 The patient tolerated this well. PLAN: We will continue to observe and recheck H and H. We will start the patient on a clear full liquid diet and follow appropriately. We discussed with the patient's . MD SOFIE Guerra/kendal , 06:18 PM , 06:25 PM
[2018-01-22] MEDS: Duloxetine 60 MG DR Capsule PO SCH (20:30)
[2018-01-22] MEDS: Sod Chloride 0.9% Inj 1,000 ML IV.CONT SCH (21:09)
[2018-01-23] MEDS: Pantoprazole Inj 40 MG Vial IV.PUSH SCH ×2 (01:11→13:40)
[2018-01-23 08:13] LABS: Baso % (Auto) 0.5 % (0.0-2.0); Eos # (Auto) 0.1 th/mm3 (0.0-0.4); Eos % (Auto) 1.2 % (0.0-4.0); Hematocrit 21.5 % (39.0-51.0); Hemoglobin 7.4 gm/dL (13.0-17.0); Lymph # (Auto) 0.8 th/mm3 (1.0-4.8); Lymph % (Auto) 11.4 % (9.0-44.0); Mean Corpuscular HGB Conc 34.2 % (32.0-36.0); Mean Corpuscular Hemoglobin 29.1 pg (27.0-34.0); Mean Corpuscular Volume 84.9 fL (80.0-100.0); Mean Platelet Volume 7.8 fL (7.0-11.0); Mono # (Auto) 0.6 th/mm3 (0.0-0.9); Mono % (Auto) 8.9 % (0.0-8.0); Neut # (Auto) 5.3 th/mm3 (1.8-7.7); Platelet Count 218 th/mm3 (150-450); Red Blood Count 2.54 mil/mm3 (4.50-5.90); Red Cell Distribution Width 17.2 % (11.6-17.2); White Blood Count 6.8 th/mm3 (4.0-11.0)
--- NOTE | 2018-01-23 09:19 | P.PN ---
Subjective Interval history: awake and alert, no complains no nausea or vomiting no reported melena or hematochez no dizziness Physical Exam Vital signs: Vital Signs 01/22/18 12:00 01/22/18 16:00 01/22/18 18:20 Temperature 97.7 F 97.7 F 98.1 F Pulse Rate 78 64 74 Respiratory Rate 18 16 16 Blood Pressure 123/56 L 169/74 H 121/59 L Pulse Oximetry 97 95 100 01/22/18 18:30 01/22/18 18:45 01/22/18 20:00 Temperature 97.6 F Pulse Rate 74 70 68 Respiratory Rate 16 16 18 Blood Pressure 150/68 H 155/67 H 142/65 H Pulse Oximetry 97 96 98 01/23/18 00:00 01/23/18 04:00 Temperature 98.6 F 98.1 F Pulse Rate 70 77 Respiratory Rate 18 18 Blood Pressure 112/54 L 138/58 L Pulse Oximetry 95 96 Intake & Output 01/22/18 01/23/18 01/23/18 18:59 06:59 18:59 Intake Total 1400 / 1400 Output Total 150 / 150 Balance 1400 / 1400 -150 / -150 Weight 91.2 kg Intake: IV 1000 / 1000 NS Inj 1,000 ML @ 60 mls/hr IV. 1000 / 1000 CONT .[id number] Rx#: [id number] Anesthesia Amount 400 / 400 Output: Urine 150 / 150 Other: Date of Last Bowel Movement 01/22/18 01/22/18 # Bowel Movements 2 Narrative: GENERAL: Well-developed, well-nourished patient in [facility]. SKIN: Warm and dry. HEAD: Normocephalic. Atraumatic. EYES: Pupils equal and round. No scleral icterus. No injection or drainage. ENT: No nasal bleeding or discharge. Mucous membranes pink and moist. NECK: Supple. Trachea midline. CARDIOVASCULAR: Irregularly irregular rhythm. RESPIRATORY: No accessory muscle use. Clear to auscultation. Breath sounds equal bilaterally. GASTROINTESTINAL: Abdomen soft, non-tender, nondistended. Normoactive bowel sounds x4. No abdominal pain to palpation. MUSCULOSKELETAL: No obvious deformities. Extremities without clubbing, cyanosis , or edema. NEUROLOGICAL: Awake and alert. No obvious cranial nerve deficits. Motor grossly within normal limits. 5/5 muscle strength in bilateral upper and lower extremities. Normal speech. Results - Labs CBC & Chem 7: 01/23/18 13:00 01/21/18 05:05 Laboratory Results - last 24 hr 01/22/18 01/22/18 01/22/18 11:49 18:46 21:01 WBC RBC Hgb Hct MCV MCH MCHC RDW Plt Count MPV Neut % (Auto) Lymph % (Auto) [place] % (Auto) Eos % (Auto) Baso % (Auto) Neut # (Auto) Lymph # (Auto) [place] # (Auto) Eos # (Auto) Baso # (Auto) WBC Differential Differential Comment POC Glucose 148 H 166 H 197 H 01/23/18 01/23/18 07:40 08:05 WBC 6.8 RBC 2.54 L Hgb 7.4 L Hct 21.5 L MCV 84.9 MCH 29.1 MCHC 34.2 RDW 17.2 Plt Count 218 MPV 7.8 Neut % (Auto) 78.0 H Lymph % (Auto) 11.4 [place] % (Auto) 8.9 H Eos % (Auto) 1.2 Baso % (Auto) 0.5 Neut # (Auto) 5.3 Lymph # (Auto) 0.8 L [place] # (Auto) 0.6 Eos # (Auto) 0.1 Baso # (Auto) 0.0 WBC Differential . Differential Comment Auto diff final POC Glucose 159 H - Procedures 01/22- EGD- unremarkable colonoscopy- - large cecal angiodysplastic lesion- fulgurated, cauterized with APC device Assessment and Plan - Assessment (1) Acute GI bleeding Code(s): K92.2 - Gastrointestinal hemorrhage, unspecified Status: Acute - Plan This is a pleasant 82-year-old male patient who presented to the ED with GI Bleed- H and H dropped this am- asymptomatic History of Hatch's esophagus S/P stretching done in the past per S/P EGD- normal S/P /colonosocpy- angiodysplasias - fulgurated -Patient has been on Coumadin for atrial fibrillation for several years - recently changed to Xarelto over the past week. - recheck H and H at noon- - give 1 unit RBC now - H and H post BT at 8 pm- transfuse if less than 9 - on PPI/sucralfate History of atrial fibrillation- rate controlled on anticoagulation QUINTIN 2-3- age, HTN, "borderline DM" -Patient's Xarelto has been held for now secondary to active GI bleed. -Continue on cardiac telemetry. A fib is controlled at this time. -Continue home Bystolic/Lasix -d/w and patient - wants input from insurance office manager- Dr. Chow regarding chronic anticoagulation - patient and family leaning toward going back to coumadin- will check a baseline INR as well at noon Hypertension, chronic: Will continue home medications. History of BPH: Continue home medications. DVT Prophylaxis: SCDs. Chemical prophylaxis held secondary to active GI bleed. Patient up and ambulating Discharge Planning: home
[2018-01-23] MEDS: Furosemide 20 MG Tablet PO SCH (09:56)
[2018-01-23] MEDS: Sucralfate 1 GM Tablet PO SCH ×3 (09:57→17:38)
[2018-01-23] MEDS: Pentoxifylline 400 MG Controlled Release Tablet PO SCH ×3 (09:57→17:38)
[2018-01-23] MEDS: Finasteride 5 MG Tablet PO SCH (09:57)
[2018-01-23] MEDS: Insulin NovoLOG Aspart Correctional Sugar Inj SQ SCH ×4 (09:57→22:50)
--- NOTE | 2018-01-23 12:37 | P.PNGI ---
Subjective Interval history: Alert Nad No complaints passing mostly stool some old blood VSS HB 7.4 Physical Exam Vital signs: Vital Signs 01/22/18 16:00 01/22/18 18:20 01/22/18 18:30 Temperature 97.7 F 98.1 F Pulse Rate 64 74 74 Respiratory Rate 16 16 16 Blood Pressure 169/74 H 121/59 L 150/68 H Pulse Oximetry 95 100 97 01/22/18 18:45 01/22/18 20:00 01/23/18 00:00 Temperature 97.6 F 98.6 F Pulse Rate 70 68 70 Respiratory Rate 16 18 18 Blood Pressure 155/67 H 142/65 H 112/54 L Pulse Oximetry 96 98 95 01/23/18 04:00 01/23/18 08:00 Temperature 98.1 F 97.9 F Pulse Rate 77 72 Respiratory Rate 18 16 Blood Pressure 138/58 L 138/62 Pulse Oximetry 96 93 L Intake & Output 01/22/18 01/23/18 01/23/18 18:59 06:59 18:59 Intake Total 1400 / 1400 720 / 720 Output Total 150 / 150 Balance 1400 / 1400 -150 / -150 720 / 720 Weight 91.2 kg Intake: IV 1000 / 1000 720 / 720 NS Inj 1,000 ML @ 60 mls/hr IV. 1000 / 1000 720 / 720 CONT .[id number] [facility] Rx#: [id number] Anesthesia Amount 400 / 400 Output: Urine 150 / 150 Other: Date of Last Bowel Movement 01/22/18 01/22/18 01/22/18 # Bowel Movements 2 - Routine Respiratory Exam Present: CTA bilaterally - Routine Cardiovascular Exam Present: S1, S2 - Routine Abdominal Exam Present: soft, normoactive bowel sounds Comments: no tenderness Results - Labs CBC & Chem 7: 01/23/18 07:40 01/21/18 05:05 Laboratory Results - last 24 hr 01/22/18 01/22/18 01/23/18 18:46 21:01 07:40 WBC 6.8 RBC 2.54 L Hgb 7.4 L Hct 21.5 L MCV 84.9 MCH 29.1 MCHC 34.2 RDW 17.2 Plt Count 218 MPV 7.8 Neut % (Auto) 78.0 H Lymph % (Auto) 11.4 [place] % (Auto) 8.9 H Eos % (Auto) 1.2 Baso % (Auto) 0.5 Neut # (Auto) 5.3 Lymph # (Auto) 0.8 L [place] # (Auto) 0.6 Eos # (Auto) 0.1 Baso # (Auto) 0.0 WBC Differential . Differential Comment Auto diff final POC Glucose 166 H 197 H Blood Type Antibody Screen MTS Gel Crossmatch 01/23/18 01/23/18 08:05 10:15 WBC RBC Hgb Hct MCV MCH MCHC RDW Plt Count MPV Neut % (Auto) Lymph % (Auto) [place] % (Auto) Eos % (Auto) Baso % (Auto) Neut # (Auto) Lymph # (Auto) [place] # (Auto) Eos # (Auto) Baso # (Auto) WBC Differential Differential Comment POC Glucose 159 H Blood Type O Positive Antibody Screen Negative MTS Gel Crossmatch See Detail - Procedures 01/22- EGD- unremarkable colonoscopy- - large cecal angiodysplastic lesion- fulgurated, cauterized with APC device Assessment and Plan (1) Acute GI bleeding Status: Acute Code(s): K92.2 - Gastrointestinal hemorrhage, unspecified (2) Anemia Status: Acute Code(s): D64.9 - Anemia, unspecified - Plan TRANSFUSE 2 UNITS DISCUSSED W HOSPITALIST AND JESSICA H/H IF STABLE HOPEFULLY D/C TOMORROW CONT W CARAFATE (2) Anemia Qualifiers: Anemia type: other cause Other causes of anemia: acute posthemorrhagic Qualified Code(s): D62 - Acute posthemorrhagic anemia
[2018-01-23 13:17] LABS: INR 1.1 Ratio
[2018-01-23 13:36] LABS: Hemoglobin A1c 6.6 % (4.3-6.0)
[2018-01-23] MEDS: Sod Chloride 0.9% Inj 1,000 ML IV.CONT SCH ×2 (19:31→19:32)
--- NOTE | 2018-01-23 19:48 | MB ---
cc: Sara Matta MD,Uzair Griffith MD DATE: 01/23/2018 INDICATION: Atrial fibrillation and gastrointestinal bleeding. HISTORY OF PRESENT ILLNESS: An 82-year-old white male with past medical history of chronic atrial fibrillation, who was recently switched to Xarelto for anticoagulation and developed gastrointestinal bleeding. The patient underwent upper endoscopy and colonoscopy. He was found to have angiodysplasia that were fulgurated. He had been controlled with Coumadin in the past with no complications and was recently switched to Xarelto. The patient has no cardiac symptoms. He came to the hospital complaining of generalized malaise and dark stools. He has received 2 units of packed red blood cells and is feeling better. Options for anticoagulation were discussed including different new oral anticoagulant agents like Eliquis, but the patient prefers to go back on Coumadin once okay by Gastroenterology. PAST MEDICAL HISTORY: Remarkable for hypertension, chronic atrial fibrillation, borderline diabetes, chronic low back pain, benign prostatic hypertrophy, and hyperlipidemia. PAST SURGICAL HISTORY: Knee surgery and back surgery. SOCIAL HISTORY: He was a former smoker. He drinks occasionally. MEDICATIONS: 1. Duloxetine 60 mg daily. 2. Finasteride 5 mg daily. 3. Fluticasone spray. 4. Furosemide 20 mg daily. 5. Hydrochlorothiazide 12.5 mg twice a day. 6. Losartan 50 mg twice a day. 7. Nebivolol 10 mg twice a day. 8. Pentoxifylline 400 mg 3 times a day. 9. Potassium chloride 10 mEq daily. 10. Pravastatin 20 mg daily. 11. Sucralfate 1 gram p.o. 3 times a day. 12. Tamsulosin 0.4 mg daily. PHYSICAL EXAMINATION: GENERAL: The patient is in no acute distress. He is sitting at the bedside, having his dinner. He has an IV running packed red blood cells. VITAL SIGNS: Blood pressure was 139/65 mmHg, heart rate 68 beats per minute. He is afebrile. HEAD AND NECK: Without JVD or carotid bruits. LUNGS: Clear to auscultation. HEART: Irregularly irregular rhythm. ABDOMEN: Benign without visceromegaly or bruits. EXTREMITIES: Without edema. LABORATORY DATA: Electrocardiogram showed atrial fibrillation, intraventricular conduction delay and leftward axis. Blood work: Sodium 141, potassium 3.7, BUN 23, creatinine 0.7, glucose 148, AST and ALT within normal limits. Albumin 2.7. White count 6.8, hemoglobin ranging from 8.9-7.4. Coagulation with an INR of 1.1. ASSESSMENT AND PLAN: An 82-year-old white male with chronic atrial fibrillation recently switched to Xarelto who developed gastrointestinal bleeding secondary to colonic angiodysplasias status post fulguration. Hemodynamically stable. No acute cardiac symptoms at that time. RECOMMENDATIONS: Continue current medical therapy. I will discontinue Lasix and continue thiazide diuretics. Xarelto has already been discontinued. The patient will restart Coumadin once okay with GI and he will follow up with Dr. Chow as an outpatient. Sara Matta MD MIL/sv , 06:40 PM , 06:49 PM
[2018-01-23 21:00] LABS: Hemoglobin 9.8 gm/dL (13.0-17.0)
[2018-01-23] MEDS: Duloxetine 60 MG DR Capsule PO SCH (22:42)
[2018-01-24] MEDS: Pantoprazole Inj 40 MG Vial IV.PUSH SCH (00:04)
[2018-01-24 08:42] VITALS: RESP 18
[2018-01-24 08:57] LABS: Baso % (Auto) 0.7 % (0.0-2.0); Eos # (Auto) 0.2 th/mm3 (0.0-0.4); Eos % (Auto) 2.8 % (0.0-4.0); Hematocrit 27.7 % (39.0-51.0); Hemoglobin 9.6 gm/dL (13.0-17.0); Lymph # (Auto) 1.1 th/mm3 (1.0-4.8); Lymph % (Auto) 15.3 % (9.0-44.0); Mean Corpuscular HGB Conc 34.7 % (32.0-36.0); Mean Corpuscular Hemoglobin 29.4 pg (27.0-34.0); Mean Corpuscular Volume 84.8 fL (80.0-100.0); Mean Platelet Volume 7.9 fL (7.0-11.0); Mono # (Auto) 0.7 th/mm3 (0.0-0.9); Mono % (Auto) 9.3 % (0.0-8.0); Neut # (Auto) 5.2 th/mm3 (1.8-7.7); Neut % (Auto) 71.9 % (16.0-70.0); Platelet Count 220 th/mm3 (150-450); Red Blood Count 3.27 mil/mm3 (4.50-5.90); Red Cell Distribution Width 16.6 % (11.6-17.2); White Blood Count 7.2 th/mm3 (4.0-11.0)
[2018-01-24 09:05] LABS: Anion Gap 8 meq/L (5-15); Blood Urea Nitrogen 10 mg/dL (7-18); Calcium 8.7 mg/dL (8.5-10.1); Carbon Dioxide 32.1 meq/L (21.0-32.0); Chloride 101 meq/L (98-107); Glomerular Filtration Rate Greater Than 89 mL/min (>89); Glucose,Random 142 mg/dL (74-106); Sodium 141 meq/L (136-145)
[2018-01-24] MEDS: Pentoxifylline 400 MG Controlled Release Tablet PO SCH ×2 (09:47→14:23)
[2018-01-24] MEDS: Finasteride 5 MG Tablet PO SCH (09:47)
[2018-01-24] MEDS: Sucralfate 1 GM Tablet PO SCH ×2 (09:47→14:23)
[2018-01-24] MEDS: Insulin NovoLOG Aspart Correctional Sugar Inj SQ SCH ×3 (09:55→16:15)
--- NOTE | 2018-01-24 10:40 | P.PN ---
Subjective Interval history: awaqke and alert, hjungry wanting to eat now no nause aor vomiting no melena or hematochezia Physical Exam Vital signs: Vital Signs 01/23/18 12:00 01/23/18 14:51 01/23/18 15:07 Temperature 98.1 F 97.1 F L 97.4 F L Pulse Rate 68 65 61 Respiratory Rate 16 18 18 Blood Pressure 158/74 H 139/65 161/72 H Pulse Oximetry 97 98 98 01/23/18 16:00 01/23/18 20:00 01/24/18 00:00 Temperature 97.8 F 97.7 F 98.4 F Pulse Rate 70 58 L 73 Respiratory Rate 16 20 20 Blood Pressure 172/77 H 119/59 L 189/86 H Pulse Oximetry 97 98 94 L 01/24/18 01:00 EDT 01/24/18 04:00 01/24/18 06:33 Temperature 97.9 F Pulse Rate 68 Respiratory Rate 20 Blood Pressure 168/76 H 184/88 H 163/72 H Pulse Oximetry 96 94 L 98 01/24/18 08:00 Temperature 98.2 F Pulse Rate 80 Respiratory Rate 18 Blood Pressure 188/82 H Pulse Oximetry 94 L Intake & Output 01/23/18 01/24/18 01/24/18 19:59 06:59 18:59 Intake Total Output Total Balance Weight Intake: IV NS Inj 1,000 ML @ 60 mls/hr IV. CONT .[id number] [facility] Rx#: [id number] Oral Other Intake (Blood Product) Amt Rbc As-3 Leukoreduced Unit [id number] Output: Urine Other: # Voids Date of Last Bowel Movement 01/22/18 Narrative: GENERAL: Well-developed, well-nourished patient in [facility]. SKIN: Warm and dry. HEAD: Normocephalic. Atraumatic. EYES: Pupils equal and round. No scleral icterus. No injection or drainage. ENT: No nasal bleeding or discharge. Mucous membranes pink and moist. NECK: Supple. Trachea midline. CARDIOVASCULAR: Irregularly irregular rhythm. RESPIRATORY: No accessory muscle use. Clear to auscultation. Breath sounds equal bilaterally. GASTROINTESTINAL: Abdomen soft, non-tender, nondistended. Normoactive bowel sounds x4. No abdominal pain to palpation. neruo exam- normal Results - Labs CBC & Chem 7: 11/04/18 08:24 01/24/18 08:24 Laboratory Results - last 24 hr 01/23/18 01/23/18 01/23/18 07:40 10:15 13:00 WBC RBC Hgb Hct 24.4 L MCV MCH MCHC RDW Plt Count MPV Neut % (Auto) Lymph % (Auto) [place] % (Auto) Eos % (Auto) Baso % (Auto) Neut # (Auto) Lymph # (Auto) [place] # (Auto) Eos # (Auto) Baso # (Auto) WBC Differential Differential Comment PT INR Sodium Potassium Chloride Carbon Dioxide Anion Gap BUN Creatinine Estimated GFR POC Glucose Random Glucose Hemoglobin A1c 6.6 H Calcium Blood Type O Positive Antibody Screen Negative MTS Gel Crossmatch See Detail 01/23/18 01/23/18 01/23/18 13:00 13:00 13:25 WBC RBC Hgb 8.5 L Hct MCV MCH MCHC RDW Plt Count MPV Neut % (Auto) Lymph % (Auto) [place] % (Auto) Eos % (Auto) Baso % (Auto) Neut # (Auto) Lymph # (Auto) [place] # (Auto) Eos # (Auto) Baso # (Auto) WBC Differential Differential Comment PT 11.0 INR 1.1 Sodium Potassium Chloride Carbon Dioxide Anion Gap BUN Creatinine Estimated GFR POC Glucose 168 H Random Glucose Hemoglobin A1c Calcium Blood Type Antibody Screen MTS Gel Crossmatch 01/23/18 01/23/18 01/23/18 17:11 20:51 22:39 WBC RBC Hgb 9.8 L Hct 29.0 L MCV MCH MCHC RDW Plt Count MPV Neut % (Auto) Lymph % (Auto) [place] % (Auto) Eos % (Auto) Baso % (Auto) Neut # (Auto) Lymph # (Auto) [place] # (Auto) Eos # (Auto) Baso # (Auto) WBC Differential Differential Comment PT INR Sodium Potassium Chloride Carbon Dioxide Anion Gap BUN Creatinine Estimated GFR POC Glucose 164 H 194 H Random Glucose Hemoglobin A1c Calcium Blood Type Antibody Screen MTS Gel Crossmatch 01/24/18 01/24/18 01/24/18 08:24 08:24 09:55 WBC 7.2 RBC 3.27 L Hgb 9.6 L Hct 27.7 L MCV 84.8 MCH 29.4 MCHC 34.7 RDW 16.6 Plt Count 220 MPV 7.9 Neut % (Auto) 71.9 H Lymph % (Auto) 15.3 [place] % (Auto) 9.3 H Eos % (Auto) 2.8 Baso % (Auto) 0.7 Neut # (Auto) 5.2 Lymph # (Auto) 1.1 [place] # (Auto) 0.7 Eos # (Auto) 0.2 Baso # (Auto) 0.0 WBC Differential . Differential Comment Auto diff final PT INR Sodium 141 Potassium 3.0 L Chloride 101 Carbon Dioxide 32.1 H Anion Gap 8 BUN 10 Creatinine 0.73 Estimated GFR Greater than 89 POC Glucose 177 H Random Glucose 142 H Hemoglobin A1c Calcium 8.7 Blood Type Antibody Screen MTS Gel Crossmatch - Procedures 01/22- EGD- unremarkable colonoscopy- - large cecal angiodysplastic lesion- fulgurated, cauterized with APC device Assessment and Plan - Assessment (1) Acute GI bleeding Code(s): K92.2 - Gastrointestinal hemorrhage, unspecified Status: Acute - Plan This is a pleasant 82-year-old male patient who presented to the ED with GI Bleed- H and H improved S/P 1 unit RNC 01/23 History of Hatch's esophagus S/P stretching done in the past per S/P EGD- normal S/P /colonosocpy- angiodysplasias - fulgurated -Patient has been on Coumadin for atrial fibrillation for several years - recently changed to Xarelto over the past week. - on PPI- change to po/sucralfate History of atrial fibrillation- rate controlled on anticoagulation QUINTIN 2-3- age, HTN, "borderline DM" -Patient's Xarelto has been held for now secondary to active GI bleed. -Continue on cardiac telemetry. A fib is controlled at this time. -Continue home Bystolic/Lasix -d/w and patient - wants input from counter caser- Dr. Chow regarding chronic anticoagulation - seen by dr. Matta- restart Coumadin when cleared by GI Hypertension, chronic: Will continue home medications. HYpokalemia - give 30m meq po x 1 now on KCL 10 meq po dialy as OP- increased to bid - Lasix - DC by cardiology History of BPH: Continue home medications. DVT Prophylaxis: SCDs. Chemical prophylaxis held secondary to active GI bleed. Patient up and ambulating Discharge Planning: home today if cleared with GI OP ff up with PCP- Dr. Roy- for INR monitoring if restarted and patient wants to go home will ff up with Dr. roy as OP recheck K level as OP Restart coumadin as OP - ff up with PCP- thursday with INR monitoring as OP
--- NOTE | 2018-01-24 14:20 | P.PNGI ---
Subjective Interval history: Alert NAD tolerating po well HB up to 9.6 after tx no further bleeding Physical Exam Vital signs: Vital Signs 01/23/18 16:00 01/23/18 20:00 01/24/18 00:00 Temperature 97.8 F 97.7 F 98.4 F Pulse Rate 70 58 L 73 Respiratory Rate 16 20 20 Blood Pressure 172/77 H 119/59 L 189/86 H Pulse Oximetry 97 98 94 L 01/24/18 01:00 EDT 01/24/18 04:00 01/24/18 06:33 Temperature 97.9 F Pulse Rate 68 Respiratory Rate 20 Blood Pressure 168/76 H 184/88 H 163/72 H Pulse Oximetry 96 94 L 98 01/24/18 08:00 01/24/18 12:00 Temperature 98.2 F 98.3 F Pulse Rate 80 63 Respiratory Rate 18 18 Blood Pressure 188/82 H 150/63 H Pulse Oximetry 94 L 94 L Intake & Output 01/23/18 01/24/18 01/24/18 19:59 06:59 18:59 Intake Total Output Total Balance Weight Intake: IV NS Inj 1,000 ML @ 60 mls/hr IV. CONT .[id number] [facility] Rx#: [id number] Oral Other Intake (Blood Product) Amt Rbc As-3 Leukoreduced Unit [id number] Output: Urine Other: # Voids Date of Last Bowel Movement 01/22/18 - Routine Cardiovascular Exam Present: S1, S2 - Routine Abdominal Exam Present: soft, normoactive bowel sounds - Routine Skin Exam Present: dry Results - Labs CBC & Chem 7: 01/24/18 08:24 01/24/18 08:24 Laboratory Results - last 24 hr 01/23/18 01/23/18 01/23/18 17:11 20:51 22:39 WBC RBC Hgb 9.8 L Hct 29.0 L MCV MCH MCHC RDW Plt Count MPV Neut % (Auto) Lymph % (Auto) [place] % (Auto) Eos % (Auto) Baso % (Auto) Neut # (Auto) Lymph # (Auto) [place] # (Auto) Eos # (Auto) Baso # (Auto) WBC Differential Differential Comment Sodium Potassium Chloride Carbon Dioxide Anion Gap BUN Creatinine Estimated GFR POC Glucose 164 H 194 H Random Glucose Calcium 01/24/18 01/24/18 01/24/18 08:24 08:24 09:55 WBC 7.2 RBC 3.27 L Hgb 9.6 L Hct 27.7 L MCV 84.8 MCH 29.4 MCHC 34.7 RDW 16.6 Plt Count 220 MPV 7.9 Neut % (Auto) 71.9 H Lymph % (Auto) 15.3 [place] % (Auto) 9.3 H Eos % (Auto) 2.8 Baso % (Auto) 0.7 Neut # (Auto) 5.2 Lymph # (Auto) 1.1 [place] # (Auto) 0.7 Eos # (Auto) 0.2 Baso # (Auto) 0.0 WBC Differential . Differential Comment Auto diff final Sodium 141 Potassium 3.0 L Chloride 101 Carbon Dioxide 32.1 H Anion Gap 8 BUN 10 Creatinine 0.73 Estimated GFR Greater than 89 POC Glucose 177 H Random Glucose 142 H Calcium 8.7 01/24/18 12:57 WBC RBC Hgb Hct MCV MCH MCHC RDW Plt Count MPV Neut % (Auto) Lymph % (Auto) [place] % (Auto) Eos % (Auto) Baso % (Auto) Neut # (Auto) Lymph # (Auto) [place] # (Auto) Eos # (Auto) Baso # (Auto) WBC Differential Differential Comment Sodium Potassium Chloride Carbon Dioxide Anion Gap BUN Creatinine Estimated GFR POC Glucose 166 H Random Glucose Calcium - Procedures 01/22- EGD- unremarkable colonoscopy- - large cecal angiodysplastic lesion- fulgurated, cauterized with APC device Assessment and Plan (1) Acute GI bleeding Status: Acute Code(s): K92.2 - Gastrointestinal hemorrhage, unspecified (2) Anemia Status: Acute Code(s): D64.9 - Anemia, unspecified - Plan OK for d/c from Gi standpoint would hold anticoagulation till saturday 01/27 discussed w pt and stafff f/u Dr Bishop x 2 weeks (2) Anemia Qualifiers: Anemia type: other cause Other causes of anemia: acute posthemorrhagic Qualified Code(s): D62 - Acute posthemorrhagic anemia
[2018-01-24 16:13] VITALS: BP 137/63; PULSE 69; TEMP 97.9; O2SAT 99
--- NOTE | 2018-01-25 06:32 | P.DS ---
Date of admission: 01/20/18 19:48 Primary care physician: Quique Roy MD Anticipated date of discharge: 01/24/18 Brief History from admission: This is an 82-year-old male patient with a known medical history of atrial fibrillation on Xarelto, hypertension who presented to the ED with complaints of generalized malaise, weakness and black tarry stools. Patient states that his symptoms started 2 days prior to presentation. He states that he sees his internal controls analyst, Dr. Chow, has been treated with Coumadin for control of his atrial fibrillation for many years now, over the past week internal controls analyst switched him over to Xarelto, and since that time he has had above complaints. He also admits to some abdominal pain which has resolved upon time of assessment. Anyways patient has been fatigued as well as weak over the past week, he has noted every bowel movement with black tarry stools. Denies any bright red blood in stool. He denies any recent fevers, chest pain, headache, chills, cough, shortness of breath, abdominal pain, nausea, vomiting, diarrhea or dysuria. Patient does have chronic back pain, has been seeing pain management and has a morphine pump in place. Lately he has been weaning his dose of morphine for management patient denies any other changes to his medicines. He admits to compliance to all his medications. Denies any tobacco abuse. Admits to occasional alcohol use. 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 Is healing well without any problems. He does have history of infection in his spine in 2016 and at that time he had his back surgery. Patient update on day of discharge: afebrile, no pain no signs of bleeding, up ansd ambulating, no dizziness DS: Diagnosis - Discharge Diagnosis (1) Acute GI bleeding Status: Acute DS: Medications - Discharge Medications Prescriptions: pantoprazole 40 mg PO BID 30 Days #60 tab sucralfate 1 gm PO TID 30 Days #90 tab DS: Summary Hospital Course: This is a pleasant 82-year-old male patient who presented to the ED with GI Bleed- H and H improved S/P 1 unit RNC 01/23 History of Hatch's esophagus S/P stretching done in the past per S/P EGD- normal S/P /colonosocpy- angiodysplasias - fulgurated -Patient has been on Coumadin for atrial fibrillation for several years - recently changed to Xarelto over the past week. - on PPI- change to po/sucralfate History of atrial fibrillation- rate controlled on anticoagulation QUINTIN 2-3- age, HTN, "borderline DM" -Patient's Xarelto has been held for now secondary to active GI bleed. -Continue on cardiac telemetry. A fib is controlled at this time. -Continue home Bystolic/Lasix -d/w and patient - wants input from internal controls analyst- Dr. Chow regarding chronic anticoagulation - seen by dr. Matta- restart Coumadin when cleared by GI Hypertension, chronic: Will continue home medications. HYpokalemia - give 30m meq po x 1 now on KCL 10 meq po dialy as OP- increased to bid - Lasix - DC by cardiology History of BPH: Continue home medications. DVT Prophylaxis: SCDs. Chemical prophylaxis held secondary to active GI bleed. Patient up and ambulating Discharge Planning: home today if cleared with GI OP ff up with PCP- Dr. Roy- for INR monitoring if restarted and patient wants to go home will ff up with Dr. roy as OP recheck K level as OP Restart coumadin as OP - ff up with PCP- thursday with INR monitoring as OP - Time Spent with Patient Total time spent providing and/or coordinating discharge services: Greater than 30 minutes - Quality: VTE Deep Vein Thrombosis/Pulmonary Embolism Present on Admission: No Exam Vital signs: Vital Signs 01/24/18 06:33 01/24/18 08:00 01/24/18 12:00 Temperature 98.2 F 98.3 F Pulse Rate 80 63 Respiratory Rate 18 18 Blood Pressure 163/72 H 188/82 H 150/63 H Pulse Oximetry 98 94 L 94 L 01/24/18 16:00 Temperature 97.9 F Pulse Rate 69 Respiratory Rate 18 Blood Pressure 137/63 Pulse Oximetry 99 Intake & Output 01/24/18 01/24/18 01/25/18 06:59 18:59 06:59 Intake Total 500 / 500 Output Total 500 / 500 Balance 0 / 0 Weight Intake: Oral 500 / 500 Output: Urine 500 / 500 Other: Date of Last Bowel Movement 01/22/18 Results Procedures completed during hospitalization: 01/22- EGD- unremarkable colonoscopy- - large cecal angiodysplastic lesion- fulgurated, cauterized with APC device Labs on day of discharge: Labs from last 24 hours 01/24/18 01/24/18 01/24/18 12:57 09:55 08:24 WBC RBC Hgb Hct MCV MCH MCHC RDW Plt Count MPV Neut % (Auto) Lymph % (Auto) Patrick % (Auto) Eos % (Auto) Baso % (Auto) Neut # (Auto) Lymph # (Auto) Patrick # (Auto) Eos # (Auto) Baso # (Auto) WBC Differential Differential Comment Sodium 141 Potassium 3.0 L Chloride 101 Carbon Dioxide 32.1 H Anion Gap 8 BUN 10 Creatinine 0.73 Estimated GFR Greater than 89 POC Glucose 166 H 177 H Random Glucose 142 H Calcium 8.7 01/24/18 08:24 WBC 7.2 RBC 3.27 L Hgb 9.6 L Hct 27.7 L MCV 84.8 MCH 29.4 MCHC 34.7 RDW 16.6 Plt Count 220 MPV 7.9 Neut % (Auto) 71.9 H Lymph % (Auto) 15.3 Patrick % (Auto) 9.3 H Eos % (Auto) 2.8 Baso % (Auto) 0.7 Neut # (Auto) 5.2 Lymph # (Auto) 1.1 Patrick # (Auto) 0.7 Eos # (Auto) 0.2 Baso # (Auto) 0.0 WBC Differential . Differential Comment Auto diff final Sodium Potassium Chloride Carbon Dioxide Anion Gap BUN Creatinine Estimated GFR POC Glucose Random Glucose Calcium Discharge Plan - Discharge Disposition Patient Disposition: 01 Discharge Home - Discharge Condition Condition: Stable - Discharge Order Discharge Orders: Discharge Order (Routine); Ordered 01/24/18 Ordered By: Waylon Geller - Discharge Details Anticipated Discharge Date: 01/24/18 - Physicians Team Primary Care Provider: Quique Roy Attending Provider: Waylon Geller Other Providers: Mu Amaya MD ; Sara Matta MD
== END 2018-01-24 16:26 | disposition home or self-care (01) ==
LOC: PHED 16:38 → PHEDA 19:48 → INTOOBSV 19:48 → PHEDA 22:05 → PH3 22:51 → N05 01-21 14:48
PROVIDERS: ADMIT Internal Medicine; ATTEND Internal Medicine
PROC: PANENDO (2018-01-22 16:33)
PROC: COLONOS (2018-01-22 16:33)